=== PATIENT | male | born 1955 | race Caucasian/White ===

== ENCOUNTER → 2016-09-28 | Outpatient (CLI) | payer OTHER | LOC: FIMAGING 08:56 | PROVIDERS: ATTEND Family Medicine | DX: M51.36 Other intervertebral disc degeneration, lumbar region (principal) ==

== ENCOUNTER 2018-01-06 15:18 | Emergency (ER) | payer OTHER ==
--- NOTE | 2018-01-06 17:40 | EDPHY ---
HPI/HX/ROS/PE/MDM Narrative: CHIEF COMPLAINT: Abnormal EKG HISTORY OF PRESENT ILLNESS: This patient is a 62 year old male with history of diabetes and hypertension presenting at the request of his primary care provider following an abnormal EKG. Last Wednesday, he saw his community relations representative for a routine visit. The patient states this provider "heard a bundle block". He saw his PCP today and had and EKG which showed LBBB. He was unable to see a bankruptcy legal assistant soon and presents here for evaluation. He currently feels well. Denies chest pain or shortness of breath. Denies any recent exercise intolerance and bicycles regularly. Denies any calf pain or swelling. He endorses a recent increase in his Lisinopril dose from 10-20mg, no other recent medication changes. He notes his brother also has a LBBB. No fever, chills, chest pain, shortness of breath, palpitations, vomiting, diarrhea, urinary complaints, headache, lightheadedness. REVIEW OF SYSTEMS: A comprehensive 10 system review of systems is otherwise negative aside from elements mentioned in the history of present illness and medical decision making. PAST MEDICAL HISTORY: Diabetes mellitus (controlled with diet and exercise). Hyperproteinemia. Hypercalcemia. Hypertension (Lisinopril). Appendectomy. SOCIAL HISTORY: Nonsmoker. Occasional alcohol use. No illicit drug use. VITAL SIGNS: Reviewed by me GENERAL: Well-developed, well-nourished, resting comfortably in no respiratory distress. HEENT: Atraumatic. Eyes: No icterus, no injection. Mouth: moist mucous membranes. No erythema or lesions. Neck: supple with no adenopathy. LUNGS: Clear to auscultation bilaterally, no wheezes, rhonchi or rales. CARDIAC: Regular rate. S4 gallop. ABDOMEN: Soft, nontender, nondistended, bowel sounds normal. BACK: No CVA tenderness. EXTREMITIES: No trauma. No edema. Range of motion is normal throughout. NEURO: Alert and oriented, grossly nonfocal. SKIN: Warm and dry, no rash. PSYCHIATRIC: Normal mentation, no agitation. Portions of this note were transcribed by a pediatric medical assistant. I personally performed a history, physical exam, medical decision making, and confirmed accuracy of information the transcribed note. ED Course: 62 y/o male presents for evaluation after incidental discovery of LBBB on EKG. Patient has S4 gallop on exam. Plan for EKG, chest x-ray. Patient does not wish to repeat CBC/chemistries today as he has had these recently. Plan for additional labs including Troponin, BNP, CK. 12-LEAD EKG: Please see the full report in [facility]. My interpretation: Sinus rhythm. Left bundle branch block. CXR normal. Troponin negative. CK within normal limits. Additional labs from and today are otherwise largely unremarkable. 19:00 Reassessed. Discussed results. Plan to discharge home in good condition with referral to cardiology for further evaluation. Return precautions discussed. He is comfortable with this plan. MDM: Differential diagnoses for the patient's symptom complex was considered including but not limited to occult ischemia, coronary artery disease, arrhythmia, abnormal EKG, pre-existing left bundle branch block, congestive heart failure, valvular disorder. - Data Points Imaging Results: CXR: Impression: Normal chest x-ray. Dictated By: Francis Carlisle MD Imaging: I viewed and interpreted images myself General Time Seen by Provider: 01/06/18 17:30 Initial Vital Signs: Initial Vital Signs Temperature (C) 36.7 C 01/06/18 15:39 Heart Rate 91 01/06/18 15:39 Respiratory Rate 16 01/06/18 15:39 Blood Pressure 152/79 H 01/06/18 15:39 O2 Sat (%) 98 01/06/18 15:39 O2 Delivery Mode Room Air Allergies/Adverse Reactions: No Known Allergies Allergy (Unverified 01/06/18 15:38) Departure - Departure Disposition: Home, Routine, Self-Care Clinical Impression: Abnormal EKG, Possible arrhythmia Condition: Good Instructions: Transthoracic Echocardiogram (ED) Additional Instructions: Follow up with cardiology for further evaluation, within one week. Return to the Emergency Department for fever, chest pain, shortness of breath, increasing pain, fainting, or other worsening of condition. Referrals: Lupillo Mukherjee DO [Primary Care Provider] - As per Instructions Noah Brewer MD [Medical Doctor] - As per Instructions Report Scribed for: Alejandrina Corbett Report Scribed by: Rose Bhardwaj Date of Report: 01/06/18 Time of Report: 19:22
[2018-01-06 18:29] LABS: CREATINE KINASE 102 IU/L (0-224)
[2018-01-06 18:43] VITALS: BP 144/84
--- NOTE | 2018-01-06 23:06 | CPEKG ---
Test Reason : OPEN Blood Pressure : / mmHG Vent. Rate : 094 BPM Atrial Rate : 094 BPM P-R Int : 169 ms QRS Dur : 154 ms QT Int : 380 ms P-R-T Axes : 077 000 154 degrees QTc Int : 476 ms Sinus rhythm Left bundle branch block Confirmed by Alejandrina Corbett ([id number]) on 01/06/2018 11:06:09 PM Referred By: Confirmed By:Alejandrina Corbett
== END 2018-01-06 19:09 | disposition home or self-care (01) ==
DX: R94.31 Abnormal electrocardiogram [ECG] [EKG] (principal); E11.9 Type 2 diabetes mellitus without complications; E88.09 Other disorders of plasma-protein metabolism, not elsewhere classified; E83.52 Hypercalcemia; I10 Essential (primary) hypertension

== ENCOUNTER 2018-01-25 09:20 | Inpatient (IN) | payer OTHER ==
[2018-01-25] MEDS ORDERED: DIAZEPAM 5 MG TAB PO ONE (09:23)
[2018-01-25] MEDS ORDERED: ASPIRIN EC 325 MG TAB PO ONE (09:23)
[2018-01-25] MEDS ORDERED: FAMOTIDINE 20 MG TAB PO ONE (09:23)
[2018-01-25] MEDS ORDERED: diphenhydrAMINE 25 MG CAP PO ONE (09:23)
[2018-01-25] MEDS ORDERED: NS 1,000 ML IV ONE (09:23)
[2018-01-25] MEDS ORDERED: ASPIRIN 81 MG CHEWABLE TAB ONE (09:52)
[2018-01-25 10:00] LABS: PLATELET COUNT 166 10^3/uL (150-400)
[2018-01-25 10:08] LABS: INR 0.95 (0.83-1.16); PROTIME(PATIENT) 12.9 SEC (12.0-15.0)
[2018-01-25] MEDS ORDERED: fentaNYL 100 MCG/2 ML INJ ONE (10:13)
[2018-01-25] MEDS ORDERED: LIDOCAINE 1% 300 MG/30 ML SDV ONE (10:13)
[2018-01-25] MEDS ORDERED: IOPAMIDOL (ISOVUE-370) 150 ML BTL IV ONE (10:14)
[2018-01-25] MEDS ORDERED: MIDAZOLAM 2 MG/2 ML VIAL ONE (10:14)
--- NOTE | 2018-01-25 10:22 | PDHPUP ---
History & Physical Update H&P update statement: This history and physical update is based on an assessment of the patient which was completed after admission or registration (within 24 hours), but prior to the surgery/procedure. H&P update: H&P reviewed & patient examined, no change in patient's condition since H&P completed
--- NOTE | 2018-01-25 10:23 | PDPROPOC ---
Sedation Plan of Care Sedation Plan of Care: vital signs stable, mental status noted, patient educated of risks, benefits, alternatives, patient can tolerate sedation ASA Classification: ASA 2 Planned drugs: fentanyl, midazolam Mallampati Score: Class 1 Mallampati Reference Image: Patient passed 3-3-2 rule?: Yes
--- NOTE | 2018-01-25 11:31 | CPIP ---
DATE OF PROCEDURE: 01/25/2018 PROCEDURES: 1. Coronary angiography. 2. Left ventriculography. INDICATION: High-risk abnormal nuclear stress test with multiple zones of ischemia and reduced left ventricular systolic function. ACCESS: Patient was prepped and draped in sterile fashion. 1% lidocaine was used to anesthetize the right inguinal region. A 6-Mongolian introducer sheath was placed selectively in the right common femo ral artery via modified Seldinger technique. CORONARY ANGIOGRAPHY: A 6-Mongolian JL4 was advanced to left main coronary artery and images obtained. The left main coronary artery bifurcated into an LAD and circumflex coronary arteries. The left gavin n coronary artery appeared normal. The left anterior descending coronary artery gave rise to 2 diago nal branches. The left anterior descending coronary artery was 100% occluded just distal to the take off of the 2nd diagonal artery. The distal vessel is being filled by [id number] as well as right-t o-left collaterals. The 2nd diagonal artery was a large vessel. The 2nd diagonal artery had a large proximal 70% stenosis present. Circumflex coronary artery was codominant. Circumflex coronary arter y had a single discrete 80% stenosis in the mid-vessel, just at the takeoff of the first OM artery. The first OM artery was also diseased in the ostial segment at 80%. A 6-Mongolian JR4 was advanced to t he right coronary artery and images obtained. The right coronary artery was 100% occluded in the mid -vessel. LEFT VENTRICULOGRAPHY: A 6-Mongolian pigtail catheter was advanced in the left ventricle and images obt ained. Left ventricle is normal size with reduced systolic function. Estimated ejection fraction is 20%. COMPLICATIONS: None. CONCLUSIONS: 1. Severe three-vessel coronary artery disease. 2. Reduced left ventricular systolic function. 3. Plan is for surgical evaluation. /[id number]/MODL
[2018-01-25] MEDS ORDERED: NITROGLYCERIN 0.4 MG BTL SL PRN (12:11)
[2018-01-25] MEDS ORDERED: ONDANSETRON 4 MG/2 ML VIAL IVP PRN (12:11)
[2018-01-25] MEDS ORDERED: ATROPINE SULFATE 1 MG/10 ML SYR IVP PRN (12:11)
--- NOTE | 2018-01-25 12:48 | PDMN ---
Medical Necessity Medical necessity: MCG: S 390 CABG-4 days: ( pend) severe 3 vessel CAD
--- NOTE | 2018-01-25 12:52 | ECHO ---
[email or web address] [address] [address] Main: [phone] Fax: Transthoracic Echocardiogram Name: ANGE MACKAY MR#: [id number] Study Date: 01/25/2018 Study Time: 11:52 AM Date of : 1955 Age: 62 year(s) Height: 172.7 cm (68 in.) Weight: 72.58 kg (160 lb.) BSA: 1.86 m2 Gender: Male Examination: Echo Indication: Post Cath Image Quality: Contrast: Requested by: Lopez Neil BP: 131 mmHg/85 mmHg Heart Rate: Rhythm: Normal sinus rhythm Indication: Post Cath Procedure Staff Publication Editor: Maikel Nesbitt RDCS Reading Physician: Lopez Neil MD Requesting Provider: Conclusions: Mildly to moderately dilated left ventricle. Severely reduced systolic LV function. The ejection fraction is visually estimated to be 20 %. The mitral valve is normal in appearance and function. Trivial mitral valve regurgitation. The aortic valve is normal in appearance and function. No old studies for comparison. Measurements: Chambers Valvular Assessment AV/MV Valvular Assessment TV/PV Normal Normal Normal Name Value Range Name Value Range Name Value Range Ao Tamica (MM): 3.2 cm (2.2 cm-3.7 AV Vmax: 1.18 m/s (1 m/s-1.7 PV Vmax: 0.83 m/s (0.6 m/s-0.9 cm) m/s) m/s) IVSd (2D): 0.7 cm (0.6 cm-1.1 AV maxP mmHg ( - ) PV PGmax: 3 mmHg ( - ) cm) AV meanP mmHg ( - ) LVDd (2D): 6.3 cm (4.2 cm-5.9 LVOT Vmax: 0.74 m/s (0.7 m/s-1.1 cm) m/s) LVDs (2D): 5.7 cm (2.1 cm-4 VERA (Vmax): 2.2 cm2 ( - ) cm) VERA (VTI): 1.9 cm ( - ) LVPWd (2D): 1.0 cm (0.6 cm-1 MV E Vmax: 0.38 m/s ( - ) cm) MV A Vmax: 0.80 m/s ( - ) LVOTd 2.1 cm 2.1 cm mm MV E/A: 0.48 ( - ) LVEF (2D): 21 (>=54 %) Visual EF: 20 % Continued Measurements: Chambers Valvular Assessment AV/MV Name Value Name Value Patient: ANGE MACKAY Study Date: 01/25/2018 Page 1 of 2 11:52 AM LADs Lon.4 cm MV E' Septal: 0.04 m/s LA Area: 17.3 cm2 MV E/E' Septal: 10.40 LA Volume: 45 ml MV E/E' Lateral: 4.60 LA Volume Index: 24.2 ml/m2 Findings: Left Ventricle: Mildly to moderately dilated left ventricle. No LV hypertrophy. Severely reduced systolic LV function. The ejection fraction is visually estimated to be 20 %. Diastolic dysfunction is present. . Right Ventricle: Normal size right ventricle. Normal RV function. Left Atrium: The left atrium is normal in size. Right Atrium: The right atrium is normal in size. Mitral Valve: The mitral valve is normal in appearance and function. Trivial mitral valve regurgitation. Aortic Valve: The aortic valve is normal in appearance and function. There is no aortic valve regurgitation. Tricuspid Valve: The tricuspid valve appears normal. Pulmonic Valve: The pulmonic valve is normal in appearance and function. Aorta: The aorta is normal. Pericardium: No pericardial effusion. (No Signature Object) Patient: ANGE MACKAY Study Date: 01/25/2018 Page 2 of 2 11:52 AM D:_[id number]
[2018-01-25] MEDS ORDERED: ACETAMINOPHEN 325 MG TAB PO PRN (16:47)
[2018-01-25] MEDS: SENNOSIDES/DOCUSATE SODIUM TAB PO SCH (20:51)
[2018-01-25] MEDS: LISINOPRIL 20 MG TAB PO SCH (20:52)
[2018-01-25] MEDS: MUPIROCIN 2% 22 GM OINT NS SCH (20:53)
[2018-01-25] MEDS ORDERED: CHLORHEXIDINE GLUC HIBICLENS 118 ML BTL TP SCH (21:00)
[2018-01-26] MEDS: MUPIROCIN 2% 22 GM OINT NS SCH ×2 (08:23→20:51)
[2018-01-26] MEDS: SENNOSIDES/DOCUSATE SODIUM TAB PO SCH ×2 (08:23→20:52)
[2018-01-26] MEDS ORDERED: INSULIN REGULAR HUMAN 100 UNIT in NS 100 ML IV ONE (10:00)
[2018-01-26] MEDS ORDERED: PHENYLEPHRINE HCL 50 MG in NS 250 ML IV ONE (10:00)
[2018-01-26] MEDS ORDERED: VERAPAMIL 5 MG, NITROGLYCERIN 2.5 MG, HEPARIN 500 UNIT, SODIUM BICARBONATE 0.2 MEQ in L... MISC ONE (10:00)
[2018-01-26] MEDS ORDERED: niCARdipine/NACL 200 ML IV ONE (10:00)
[2018-01-26] MEDS ORDERED: CITRATE DEXTROSE SOLN 500 ML BAG MISC ONE (10:00)
[2018-01-26] MEDS ORDERED: MANNITOL 25% 12.5 GM/50 ML VIAL IVP ONE (10:00)
[2018-01-26] MEDS ORDERED: NOREPINEPHRINE BITARTRATE 16 MG in NS 250 ML IV ONE (10:00)
[2018-01-26] MEDS ORDERED: ceFAZolin 2 GM/DEXTROSE 100 ML IV ONE (10:00)
[2018-01-26] MEDS ORDERED: NS 1,000 ML IV ONE (10:00)
[2018-01-26] MEDS ORDERED: CARDIOPLEGIC SOLUTION 1,052.8 ML PF ONE (10:00)
[2018-01-26] MEDS ORDERED: AMINOCAPROIC ACID 5 GM/20 ML VIAL IV ONE (10:00)
--- NOTE | 2018-01-26 15:13 | ASMTCMCOM ---
CM Note CM Note Notes: 01/26/2018 Case Management Note Reviewed chart and discussed with RN. Pt admitted with CAD with planned CABG for tomorrow. Case Management d/c poc: to be determined. Case Management to follow. Date Signed: 01/26/2018 03:13 PM Electronically Signed By:Rufina Peñaloza RN
--- NOTE | 2018-01-26 16:38 | SOAPPROG ---
[facility] Progress Note Assessment/Plan: 1. CAD - Pt presented with a new LBBB and reduced left ventricular systolic function. Cardiac catheterization demonstrated severe 3VD. Pt is anticipating surgery on 01/27/18. 2. CM - Pt has an ICM. His EF is 20 to 25%. He is euvolemic at this time and denies symptoms of orthopnea and PND. --> Continue lisinopril --> Will start coreg 3.125 mg bid 3. Hyperlipidemia - Pts LDL cholesterol is 90 on atorvastatin 20 mg daily. --> Increase atorvastatin to 40 mg daily. 01/26/18 16:39 Subjective: No chest pain No orthopnea or PND Ambulating 18 laps around the pod with out difficulty. Objective: Vital Signs Temp Pulse Resp BP Pulse Ox 36.9 C 80 10 L 139/79 H 97 01/26/18 04:21 01/26/18 04:21 01/26/18 04:21 01/26/18 04:21 01/26/18 04:21 Laboratory Results 01/25/18 09:30 01/26/18 03:24 01/25/18 01/26/18 01/27/18 05:59 05:59 05:59 Intake Total 390 Output Total 1050 Balance -660 PT 12.9 SEC (12.0-15.0) 01/25/18 09:30 INR 0.95 (0.83-1.16) 01/25/18 09:30 Physical Exam - Physical Exam General Appearance: alert, no apparent distress Respiratory: lungs clear Cardiac/Chest: regular rate, rhythm Extremities: other (No hematoma or echymosis.), No pedal edema Neuro/Psych: alert, oriented x 3 ICD10 Worksheet Patient Problems: Problems Problem Status Onset Cardiomyopathy Acute - ICD10 Problem Qualifiers (1) Cardiomyopathy
[2018-01-26] MEDS: CARVEDILOL 3.125 MG TAB PO SCH (17:15)
[2018-01-26] MEDS: ATORVASTATIN CALCIUM 40 MG TAB PO SCH (17:15)
--- NOTE | 2018-01-26 17:21 | PDGENHP ---
History and Physical - Chief Complaint preop CABG - History of Present Illness Consultation done by Dr Cochran 01/25/18 but not dictated. 62 yo male with multiple cardiac risk factors, a newly discovered LBBB, and an abnormal nuclear stress test demonstrating a large ischemic territory as well as severe global hypokinesis with an EF of 28% admitted for further cardiac w/ u. Demonstrated to have severe multivessel CAD and referred for surgical revascularization. Dilated cardiomyopathy confirmed by echo. No significant valvular dysfx, arrhythmias or prohibitive neurologic risk. He is asymptomatic. Runs most of his errands by bicycle and habitually rides [employer] 5-15 miles 3-4 x weekly. No drop off in exercise tolerance recalled. Weight has been stable. Denies dyspnea, orthopnea, edema, palpitations, or presyncope. History Information - Allergies/Home Medication List Allergies/Adverse Reactions: No Known Allergies Allergy (Verified 01/24/18 10:16) Home Medications: Acetaminophen [Tylenol 325mg (*)] 325 mg PO DAILY PRN 01/24/18 [Last Taken 01/23] Aflibercept [Eylea] 2 mg IO Q30D 01/24/18 [Last Taken 01/24/18] Aspirin [Aspirin 81mg (*)] 81 mg PO DAILY 01/24/18 [Last Taken 01/25/18] Atorvastatin Calcium [Lipitor 20 mg (*)] 20 mg PO DAILY 01/24/18 [Last Taken 09/06] Cholecalciferol Vit D3 [Vitamin D3 2000 units tab (OTC)] 2,000 units PO DAILY [Last Taken 01/24/18] Lisinopril [Zestril 20 mg (*)] 20 mg PO HS 01/24/18 [Last Taken 01/24/18 21:00] [place]-3 Fatty Acids [Fish Oil 1000 mg (*)] 2,000 mg PO DAILY 01/24/18 [Last Taken 01/24/18] I have personally reviewed and updated: family history, medical history, social history, surgical history - Past Medical History degenerative disc disease (lumbar with LLE radiculopathy), diabetes type 2 ( with proteinuria, retinopathy, nephropathy and peripheral neuropathy), hypertension, hyperlipidemia Additional medical history: primary hyperparathyroidism. Raynaud's. normocytic anemia - Surgical History Reports: appendectomy Additional surgical history: periodic eye injections (for retinopathy) at [facility] - Social History Smoking Status: Never smoked Additional social history: Single, no children, lives alone. 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), thinking about [facility] Review of Systems Review of Systems: ROS: 10pt was reviewed & negative except for what was stated in HPI & below EENMT: Reports: other (glasses) Genitourinary: Reports: other (nocturia) Physical Exam Physical Exam: Temp Pulse Resp BP Pulse Ox 36.9 C 80 10 L 139/79 H 97 01/26/18 04:21 01/26/18 04:21 01/26/18 04:21 01/26/18 04:21 01/26/18 04:21 Constitutional: no apparent distress, appears nourished Eyes: other (PER) Ears, Nose, Mouth, Throat: moist mucous membranes, hearing normal Cardiovascular: regular rate and rhythym, other (Slender legs with superficial veins, no visible varicosities) Peripheral Pulses: 2+: femoral (L) (R cath site dressing CDI, perimeter soft), dorsalis-pedis (R), dorsalis-pedis (L) Respiratory: no respiratory distress, clear to auscultation Gastrointestinal: normoactive bowel sounds, soft, non-tender abdomen Skin: warm, no rashes or abrasions Musculoskeletal: other (symmetric tone) Psychiatric: interacting appropriately, not anxious Lab Data & Imaging Review 01/25/18 09:30 01/26/18 03:24 WBC 7.33 10^3/uL (3.80-9.50) 01/25/18 09:30 RBC 4.32 10^6/uL (4.40-6.38) L 01/25/18 09:30 Hgb 13.5 g/dL (13.7-17.5) L 01/25/18 09:30 Hct 39.4 % (40.0-51.0) L 01/25/18 09:30 MCV 91.2 fL (81.5-99.8) 01/25/18 09:30 MCH 31.3 pg (27.9-34.1) 01/25/18 09:30 MCHC 34.3 g/dL (32.4-36.7) 01/25/18 09:30 RDW 13.7 % (11.5-15.2) 01/25/18 09:30 Plt Count 166 10^3/uL (150-400) 01/25/18 09:30 MPV 9.6 fL (8.7-11.7) 01/25/18 09:30 Neut % (Auto) 63.4 % (39.3-74.2) 01/25/18 09:30 Lymph % (Auto) 22.1 % (15.0-45.0) 01/25/18 09:30 [place]ison % (Auto) 9.1 % (4.5-13.0) 01/25/18 09:30 Eos % (Auto) 4.6 % (0.6-7.6) 01/25/18 09:30 Baso % (Auto) 0.7 % (0.3-1.7) 01/25/18 09:30 Nucleat RBC Rel Count 0.0 % (0.0-0.2) 01/25/18 09:30 Absolute Neuts (auto) 4.64 10^3/uL (1.70-6.50) 01/25/18 09:30 Absolute Lymphs (auto) 1.62 10^3/uL (1.00-3.00) 01/25/18 09:30 Absolute Monos (auto) 0.67 10^3/uL (0.30-0.80) 01/25/18 09:30 Absolute Eos (auto) 0.34 10^3/uL (0.03-0.40) 01/25/18 09:30 Absolute Basos (auto) 0.05 10^3/uL (0.02-0.10) 01/25/18 09:30 Absolute Nucleated RBC 0.00 10^3/uL (0-0.01) 01/25/18 09:30 Immature Gran % 0.1 % (0.0-1.1) 01/25/18 09:30 Immature Gran # 0.01 10^3/uL (0.00-0.10) 01/25/18 09:30 PT 12.9 SEC (12.0-15.0) 01/25/18 09:30 INR 0.95 (0.83-1.16) 01/25/18 09:30 Sodium 141 mEq/L (135-145) 01/26/18 03:24 Potassium 4.5 mEq/L (3.3-5.0) 01/26/18 03:24 Chloride 106 mEq/L (97-110) 01/26/18 03:24 Carbon Dioxide 26 mEq/l (22-31) 01/26/18 03:24 Anion Gap 9 mEq/L (6-14) 01/26/18 03:24 BUN 25 mg/dL (7-23) H 01/26/18 03:24 Creatinine 1.0 mg/dL (0.7-1.3) 01/26/18 03:24 Estimated GFR > 60 01/26/18 03:24 Glucose 90 mg/dL (70-100) 01/26/18 03:24 Hemoglobin A1c 6.1 % (4.0-6.0) H 01/26/18 03:24 Estim Average Glucose 128 mg/dL (68-126) H 01/26/18 03:24 Calcium 10.8 mg/dL (8.5-10.4) H 01/26/18 03:24 Phosphorus 4.7 mg/dL (2.5-4.5) H 01/26/18 03:24 Magnesium 2.0 mg/dL (1.6-2.3) 01/25/18 09:30 Triglycerides 62 mg/dL (40-150) 01/25/18 09:30 Cholesterol 158 mg/dL (140-220) 01/25/18 09:30 Cholesterol Risk Factr 0.5 (0.2-1.0) 01/25/18 09:30 LDL Cholesterol, Calc 90 mg/dL (80-100) 01/25/18 09:30 LDL Risk Factor 0.8 (0.2-1.0) 01/25/18 09:30 VLDL Cholesterol 12 mg/dL (8-25) 01/25/18 09:30 Non-HDL Cholesterol 102 mg/dL (90-129) 01/25/18 09:30 HDL Cholesterol 56 mg/dL (40-65) 01/25/18 09:30 LDL/HDL Ratio 1.60 RATIO (1.00-3.64) 01/25/18 09:30 Cholesterol/HDL Ratio 2.82 RATIO (1.00-4.97) 01/25/18 09:30 Patient ABO/Rh O POSITIVE 01/25/18 15:20 Antibody Screen NEGATIVE 01/25/18 15:20 Imaging Review: LHC: Codominant circulation, SILVERWARE ETCHER LAD after D2, 70% prox D2 stenosis, 80% mid LCX stenosis, 80% ostial OM1 stenosis, 100% mid RCA, LVEF 20% TTE: Mild to mod LV dilatation, LVEF 20%, Nl RV size and systolic fx, nl sized atria, trivial MR, no TR, no /AI Carotid US: mild plaquing bilat bulbs Visualized and Interpreted Chest x-ray results: Yes Chest X-Ray results: normal Visualized and Interpreted EKG results: Yes EKG Interpretation: Positive for: left bundle branch block, normal sinsus rhythm Assessment & Plan Assessment: Multivessel CAD Ischemic cardiomyopathy DM2, controlled HTN Dyslipidemia Plan: CABG by Dr Collier
[2018-01-26] MEDS: LISINOPRIL 20 MG TAB PO SCH (20:51)
[2018-01-26] MEDS ORDERED: CHLORHEXIDINE GLUC HIBICLENS 118 ML BTL TP SCH (21:00)
--- NOTE | 2018-01-26 22:42 | CPEKG ---
Test Reason : OPEN Blood Pressure : / mmHG Vent. Rate : 089 BPM Atrial Rate : 087 BPM P-R Int : 163 ms QRS Dur : 151 ms QT Int : 413 ms P-R-T Axes : 066 -08 154 degrees QTc Int : 503 ms Sinus rhythm Left bundle branch block Borderline prolonged QTc Confirmed by Obed Zuniga ([id number]) on 01/26/2018 10:42:13 PM Referred By: Confirmed By:Obed Zuniga
[2018-01-27] MEDS ORDERED: LR 1,000 ML IV ONE (05:35)
[2018-01-27] MEDS ORDERED: DOBUTamine/DEXTROSE 250 ML IV ONE (06:00)
[2018-01-27] MEDS: MUPIROCIN 2% 22 GM OINT NS SCH ×2 (06:21→21:47)
[2018-01-27] MEDS ORDERED: PROTAMINE SULFATE 50 MG/5 ML VIAL IVP ONE (06:46)
[2018-01-27] MEDS ORDERED: DOPamine/DEXTROSE 400 MG/250 ML BAG IV ONE (06:47)
[2018-01-27] MEDS ORDERED: MILRINONE/DEXTROSE/100 ML BAG IV ONE (06:47)
[2018-01-27] MEDS ORDERED: CALCIUM CHLORIDE 1 GM/10 ML INJ ONE ×2 (06:47→06:49)
[2018-01-27] MEDS ORDERED: NA BICARBONATE 50 MEQ/50 ML VIAL ONE ×2 (06:47→16:44)
[2018-01-27] MEDS ORDERED: HEPARIN 10,000 UNIT/10 ML MDV (1,000 UNIT/ML) ONE ×2 (06:47→06:49)
[2018-01-27] MEDS ORDERED: ADENOSINE 6 MG/2 ML VIAL ONE (06:48)
[2018-01-27] MEDS ORDERED: NITROGLYCERIN/D5W 50 MG/250 ML BOTTLE IV ONE (06:48)
[2018-01-27] MEDS ORDERED: ALBUMIN 5% 250 ML BOTTLE IV ONE ×3 (06:48→14:02)
[2018-01-27] MEDS ORDERED: AMIODARONE HCL 150 MG/3 ML VIAL ONE ×2 (06:48→06:49)
[2018-01-27] MEDS ORDERED: ceFAZolin 1 GM VIAL ONE (06:48)
[2018-01-27] MEDS ORDERED: niCARdipine/NACL/200 ML BAG IV ONE (06:48)
[2018-01-27] MEDS ORDERED: methylPREDNISolone SOD SUCC 1 GM/8 ML VIAL ONE (06:49)
[2018-01-27] MEDS ORDERED: MAGNESIUM SULFATE 1 GM/2 ML VIAL ONE (06:49)
[2018-01-27] MEDS ORDERED: CITRATE DEXTROSE SOLN 500 ML BAG ONE (06:49)
[2018-01-27] MEDS ORDERED: LIDOCAINE 2% 100 MG/5 ML SYR ONE (06:49)
[2018-01-27] MEDS ORDERED: VERAPAMIL 5 MG/2 ML VIAL ONE (06:53)
[2018-01-27] MEDS ORDERED: PAPAVERINE HCL 60 MG/2 ML SDV ONE (06:53)
[2018-01-27] MEDS ORDERED: MIDAZOLAM 2 MG/2 ML VIAL IVP ONE ×2 (06:57→18:45)
--- NOTE | 2018-01-27 06:57 | PDANEPAE ---
ANE History of Present Illness 62 yo cabg ANE Past Medical History - Cardiovascular History Hx Hypertension: No Hx Arrhythmias: No Hx Chest Pain: No Hx Coronary Artery / Peripheral Vascular Disease: Yes Hx CHF / Valvular Disease: Yes Hx Palpitations: No - Pulmonary History Hx COPD: No Hx Asthma/Reactive Airway Disease: No Hx Recent Upper Respiratory Infection: No Hx Oxygen in Use at Home: No Hx Sleep Apnea: No Sleep Apnea Screening Result - Last Documented: Positive - Endocrine History Hx Diabetes: Yes ANE Review of Systems Review of Systems: - Exercise capacity METS (RN): 4 METS ANE Patient History - Allergies Allergies/Adverse Reactions: No Known Allergies Allergy (Verified 01/24/18 10:16) - Home Medications Home medications: home medication list seen and reviewed Home Medications: Acetaminophen [Tylenol 325mg (*)] 325 mg PO DAILY PRN 01/24/18 [Last Taken 01/23] Aflibercept [Eylea] 2 mg IO Q30D 01/24/18 [Last Taken 01/24/18] Aspirin [Aspirin 81mg (*)] 81 mg PO DAILY 01/24/18 [Last Taken 01/25/18] Atorvastatin Calcium [Lipitor 20 mg (*)] 20 mg PO DAILY 01/24/18 [Last Taken 09/06] Cholecalciferol Vit D3 [Vitamin D3 2000 units tab (OTC)] 2,000 units PO DAILY [Last Taken 01/24/18] Lisinopril [Zestril 20 mg (*)] 20 mg PO HS 01/24/18 [Last Taken 01/24/18 21:00] [place]-3 Fatty Acids [Fish Oil 1000 mg (*)] 2,000 mg PO DAILY 01/24/18 [Last Taken 01/24/18] - NPO status NPO Status: no food or drink >8 hours NPO Since - Liquids (Date): 01/26/18 NPO Since - Liquids (Time): 23:35 NPO Since - Solids (Date): 01/26/18 NPO Since - Solids (Time): 21:40 - Smoking Hx Smoking Status: Never smoked ANE Labs/Vital Signs - Labs Result Diagrams: 01/25/18 09:30 01/26/18 03:24 - Vital Signs Blood Pressure: 120/71 Heart Rate: 88 Respiratory Rate: 18 O2 Sat (%): 96 Height: 5 ft 8 in Weight: 70.6 kg ANE Physical Exam - Airway Neck exam: FROM Mallampati Score: Class 2 Mouth exam: normal dental/mouth exam - Pulmonary Pulmonary: no respiratory distress - Cardiovascular Cardiovascular: regular rate and rhythym - ASA Status ASA Status: IV ANE Anesthesia Plan Anesthesia Plan: general endotracheal anesthesia Lines/Monitors: arterial line, central line, [place]
[2018-01-27] MEDS ORDERED: REMIFENTANIL HCL 1 MG VIAL ONE (07:05)
[2018-01-27] MEDS ORDERED: PROPOFOL/EMULSION 500 MG/50 ML BOTTLE IV ONE (07:06)
[2018-01-27] MEDS ORDERED: ROCURONIUM 100 MG/10 ML VIAL ONE (07:06)
[2018-01-27] MEDS ORDERED: fentaNYL 100 MCG/2 ML INJ ONE ×2 (07:06→11:40)
[2018-01-27] MEDS ORDERED: DEXAMETHASONE 4 MG/ML VIAL ONE (07:08)
[2018-01-27] MEDS ORDERED: NOREPINEPHRINE BITARTRATE 16 MG in NS 250 ML IV ONE (08:00)
[2018-01-27] MEDS ORDERED: MANNITOL 25% 12.5 GM/50 ML VIAL IVP ONE (08:00)
[2018-01-27] MEDS ORDERED: CITRATE DEXTROSE SOLN 500 ML BAG MISC ONE (08:00)
[2018-01-27] MEDS ORDERED: niCARdipine/NACL 200 ML IV ONE (08:00)
[2018-01-27] MEDS ORDERED: PHENYLEPHRINE HCL 50 MG in NS 250 ML IV ONE (08:00)
[2018-01-27] MEDS ORDERED: AMINOCAPROIC ACID 5 GM/20 ML VIAL IV ONE (08:00)
[2018-01-27] MEDS ORDERED: CARDIOPLEGIC SOLUTION 1,052.8 ML PF ONE (08:00)
[2018-01-27] MEDS ORDERED: INSULIN REGULAR HUMAN 100 UNIT in NS 100 ML IV ONE (08:00)
[2018-01-27] MEDS ORDERED: ceFAZolin 2 GM/DEXTROSE 100 ML IV ONE (08:00)
[2018-01-27] MEDS ORDERED: VERAPAMIL 5 MG, NITROGLYCERIN 2.5 MG, HEPARIN 500 UNIT, SODIUM BICARBONATE 0.2 MEQ in L... MISC ONE (08:00)
[2018-01-27] MEDS ORDERED: PROPOFOL 200 MG/20 ML VIAL ONE (10:06)
[2018-01-27] MEDS ORDERED: ePHEDrine SULFATE 25 MG/5 ML SYR ONE (11:21)
[2018-01-27] MEDS ORDERED: PHENYLEPHRINE HCL 100 MCG/ML SYR ONE (11:21)
[2018-01-27] MEDS: ATORVASTATIN CALCIUM 40 MG TAB PO SCH (11:39)
[2018-01-27] MEDS: CARVEDILOL 3.125 MG TAB PO SCH (11:39)
[2018-01-27] MEDS: SENNOSIDES/DOCUSATE SODIUM TAB PO SCH ×2 (11:40→21:50)
[2018-01-27] MEDS ORDERED: BISACODYL 10 MG SUPP PR PRN (11:52)
[2018-01-27] MEDS ORDERED: HYDROCODONE/APAP 5/325 TAB PO PRN (11:52)
[2018-01-27] MEDS ORDERED: MEPERIDINE 25 MG/0.5 ML AMP IVP PRN (11:52)
[2018-01-27] MEDS ORDERED: LACTULOSE 20 GM/30 ML UDCUP PO PRN (11:52)
[2018-01-27] MEDS ORDERED: PANTOPRAZOLE SODIUM 40 MG VIAL IVP ONE (11:52)
[2018-01-27] MEDS ORDERED: METOCLOPRAMIDE 10 MG/2 ML VIAL IVP PRN (11:52)
[2018-01-27] MEDS ORDERED: ACETAMINOPHEN 325 MG TAB PO PRN (11:52)
[2018-01-27] MEDS ORDERED: ONDANSETRON 4 MG/2 ML VIAL IVP PRN (11:52)
[2018-01-27] MEDS ORDERED: POLYETHYLENE GLYCOL 3350 17 GM PKT PO PRN (11:52)
[2018-01-27] MEDS ORDERED: MAGNESIUM HYDROXIDE 30 ML UDCUP PO PRN (11:52)
[2018-01-27] MEDS ORDERED: ONDANSETRON DISINTEGRATING 4 MG TAB PO PRN (11:52)
[2018-01-27] MEDS ORDERED: fentaNYL 100 MCG/2 ML INJ IVP PRN (11:52)
[2018-01-27] MEDS ORDERED: D50W 25 GM/50 ML SYR IVP PRN (11:52)
[2018-01-27] MEDS ORDERED: CEPACOL LOZENGE PO PRN (11:52)
[2018-01-27] MEDS ORDERED: SODIUM CL NASAL 45 ML BTL EACHNARE PRN (11:52)
[2018-01-27] MEDS ORDERED: INSULIN REGULAR HUMAN 100 UNIT in NS 100 ML IV SCH (12:00)
[2018-01-27] MEDS ORDERED: niCARdipine/NACL 200 ML IV SCH (12:00)
[2018-01-27] MEDS ORDERED: NS 1,000 ML IV SCH ×2 (12:00→19:00)
--- NOTE | 2018-01-27 12:36 | GOP ---
DATE OF OPERATION: 01/27/2018 SURGEON: Joaquín Collier MD BEEF CATTLE FARMER: Charlie Álvarez PA-C. PREOPERATIVE DIAGNOSIS: Coronary artery disease with previous anterior wall myocardial infarction. POSTOPERATIVE DIAGNOSIS: Coronary artery disease with previous anterior wall myocardial infarction. PROCEDURE PERFORMED: Quadruple coronary artery bypass grafting. Endoscopic vein harvest from the le ft leg. FINDINGS: The pericardial space was free. The aorta was soft. The mammary was a good quality 1.5 m m vessel. The vein was good quality 3 mm vessel. The distal vessels were all calcified. The LAD wa s diminished. We dissect it out in several spaces. It was diffusely diseased and essentially atreti c. We were able to open it ultimately, and it was grafted with the mammary artery but limited flow w ould be anticipated due to the miniscule remnant of a lumen. INDICATIONS: The patient is a 62-year-old gentleman with an active lifestyle. He was feeling unwell and ultimately underwent stress test, which he failed and cardiac catheterization. Coronary angiogr aphy reveals chronically occluded, non-dominant right coronary and occluded LAD with filling of a sma ll distal vessel by collaterals, and a large circumflex system with proximal disease. He was recomme nded to undergo surgical revascularization. DESCRIPTION OF PROCEDURE: Patient taken to the operating room and placed on the operating table in s upine position after the induction of general anesthesia and single-lumen arterial tube invasion neela ent was prepped and draped sterilely. A standard median sternotomy was performed, and the left inter nal mammary artery was taken down with electrocautery and hemoclips. While the saphenous vein was vaughan rvested from the left leg using a minimally invasive endoscopic technique, the patient was fully hepa rinized and mammary was divided and found to have good flow. The patient was cannulated with a Sarns 8.0 Soft-Flow aortic cannula as well as a dual-staged venous right atrial cannula. Cardiopulmonary bypass was instituted. The distal vessels were marked for grafting. A cross-clamp was applied and t he heart was arrested with 1 L of [place] solution. The distal left circumflex M2 vessel was dissec mariam, opened, and anastomosed end-to-side with a vein graft using running 7-0 Prolene. Similarly M1 w as also opened. This is a smaller vessel. It was anastomosed end-to-side through a separate vein gr aft using 7-0 Prolene. Lastly, we did look at the diagonal. This was also somewhat calcified. We a nastomosed the vein graft end-to-side using running 7-0 Prolene. While dissecting the LAD, it was ve ry clear this was an atretic vessel. Borderline graft, while we did open it there was a lumen that w as approximately a millimeter in size. We anastomosed the mammary end-to-side to the LAD. Distally the LAD appeared subtotally occluded. However, the mammary was allowed to flow freely, and this did re-animate the anterior wall. The cross-clamp was then removed and a partial occlusion clamp was keanu brandi at 3 vein grafts, which were each individually anastomosed end-to-side to the ascending aorta. T hey were de-aired and allowed to flow freely. mediastinal chest tubes were placed as well as 2 right ventricular pacing wires. The patient was from bypass without difficulty using dobutamine at 6 mcg. Once off bypass the post puncture esophageal echo shows some recruitment of th e anterior wall. Protamine was administered and the patient was decannulated. All the cannulation s ites were doubly secured with a Prolene suture, and after hemostasis had been achieved the heart was then covered with pericardium and fat, and the chest was closed with #6 stainless steel wires. Subcu taneous tissue and skin were closed with running Vicryl suture. The patient tolerated the procedure well. SUMMARY OF GRAFTS: Left internal mammary artery to the LAD, saphenous vein graft from aorta to D1, s aphenous vein graft from aorta to M1, saphenous vein graft from aorta to M2. /[id number]/MODL
[2018-01-27] MEDS: ALBUMIN 5% 250 ML IV PRN ×2 (13:00→13:41)
[2018-01-27] MEDS ORDERED: ALBUMIN 5% 500 ML BOTTLE IV ONE (14:33)
[2018-01-27] MEDS ORDERED: ALBUMIN 5% 500 ML IV ONE (14:34)
[2018-01-27] MEDS ORDERED: EPINEPHrine 1 MG/ML INJ ONE (14:37)
[2018-01-27] MEDS ORDERED: NOREPINEPHRINE BITARTRATE 16 MG in NS 250 ML IV SCH (15:00)
[2018-01-27] MEDS ORDERED: NOREPINEPHRINE BITARTRATE 4 MG in NS 500 ML IV SCH (15:00)
[2018-01-27] MEDS ORDERED: EPINEPHrine 8 MG in NS 250 ML IV SCH (15:00)
[2018-01-27] MEDS ORDERED: SODIUM BICARBONATE 50 MEQ/50 ML SYR IV ONE ×2 (15:15→17:00)
[2018-01-27] MEDS: ceFAZolin 2 GM/DEXTROSE 100 ML IV SCH (16:23)
--- NOTE | 2018-01-27 16:29 | GCON ---
CRITICAL CARE CONSULTATION. DATE OF CONSULTATION: 01/27/2018 HISTORY OF PRESENT ILLNESS: This patient is a 62-year-old male who was admitted for coronary artery bypass grafting. He had been feeling relatively unwell with unclear reasons and underwent an outpati ent cardiac workup which included a nuclear stress test and echocardiogram. The stress test was servando maria alejandra abnormal and his echo showed an ejection fraction of only 20%. He also had a new left bundle br anch block. Interestingly enough, he rode his bicycle to his appointments for ongoing followup but w as admitted for cardiac cath which showed 3 vessel disease and underwent coronary artery bypass graft ing today. There were no intraoperative complications. He was brought back to the intensive care un it and extubated per protocol without difficulty. After about 60 minutes however, he developed signi ficant hypotension down to the 40s and was quite symptomatic and ashen during this. He was placed in a Trendelenburg position and given albumin as well as a unit of blood and started on both norepineph rine and epinephrine drips. Of note he came from the OR on dobutamine, but this was not titrated dur ing this period. There was no significant chest tube output during this period. His oxygen saturati on remained relatively stable. His breath sounds were equal bilaterally and an echocardiogram is pen ding at this time. He responded well to the volume as well as the pressors and maintained his mental status and his airway throughout the episode. REVIEW OF SYSTEMS: Otherwise negative. PAST MEDICAL HISTORY: Includes coronary artery disease, degenerative joint disease, cataracts, hepat itis B, anemia, hyperlipidemia, peripheral neuropathy, primary hyperparathyroidism, Raynaud phenomeno n, varicella zoster, and diabetes. PAST SURGICAL HISTORY: Other than today's CABG includes an appendectomy in the past. SOCIAL HISTORY: He is a nonsmoker and no significant alcohol or IV drug use. FAMILY HISTORY: Noncontributory at this time. CURRENT MEDICATIONS: Include Tylenol, [place], aspirin, Lipitor, carvedilol, Ancef, Pepcid, fentanyl, insulin, lactulose, lisinopril, milk of magnesia, Demerol p.r.n., Reglan p.r.n., morphine p.r.n., isra ardipine p.r.n., Zofran, Protonix, normal saline, throat lozenges. EXAM: VITAL SIGNS: On my arrival to the room in which I was called emergently, the patient was in Tr endelenburg position, appeared to be quite pale. His blood pressure by his arterial line was about 6 0-70 systolic as those maneuvers were being implemented. GENERAL: He was awake and able to assist to answer questions and was obviously uncomfortable. HEENT: Pupils equally round and reactive to ligh t. Nonicteric and noninjected. Mucous membranes were dry without erythema or exudate. NECK: Supple without adenopathy. No obvious jugular vein distention. LUNGS: Breath sounds were somewhat coarse b ilaterally. His chest wall incision was clean and dry without evidence of nonunion or obvious bleedi ng. Chest tube sites also look normal. HEART: Had a regular rate and rhythm. ABDOMEN: Soft, nont jagdish, nondistended without hepatosplenomegaly. EXTREMITIES: Show no clubbing, cyanosis, or edema. S KIN: Otherwise warm and dry. OBJECTIVE DATA: Includes his hematocrit of 25. His preoperative hematocrit was 39. An arterial blo od gas showed a pH 7.30, pCO2 37, pO2 62, bicarb of 19, base excess 7. He was given bicarbonate for that gas. A basic metabolic panel was essentially normal. His lactate was 1.9. Chest x-ray prior t o extubation was unremarkable. ASSESSMENT PLAN: 1. Severe hypotension of uncertain etiology, may be responding to fluids. At this time I do not thi nk he has adrenal insufficiency or an acute coronary syndrome, having just had a coronary artery bypa ss graft. Cardiac tamponade is in fact, a possibility though he was responsive and is getting an ech ocardiogram at this time. His low ejection fraction may not tolerate the anemia and I agree with the blood that he has been getting. His current drips include dobutamine, which I would leave alone at t his time,epinephrine and norepinephrine. I added vasopressin at this time to augment the effect of t hose medications and would titrate off his epinephrine. Of note during the resuscitation period chanelle g some frequent PVCs, about a 10-beat run of nonsustained VT, so I am hoping to minimize the arrhythm ogenicity of those medications. I do not think he is having active bleeding at this time, but colt bayronrajesh will have to follow up after his blood transfusion to see if his hematocrit rises appropriately. He is looking much better at this time. Dr. Collier is aware of this situation and we will continue to follow. A total of about 45 minutes of critical care time was required in the evaluation and management of th is patient. /[id number]/MODL
[2018-01-27] MEDS: POTASSIUM Cl (KCl) 50 ML IV PRN (16:34)
--- NOTE | 2018-01-27 16:34 | GPN ---
DATE OF PROCEDURE: 01/27/2018 PROCEDURE: Emergent intubation. Conscious sedation was achieved using a total of 40 mg IV etomidate, 1 mg of IV Versed. The patient tolerated these well without complications. Consent was waived due to the emergent nature of the procedure. INDICATION: Severe hypoxemia following recent coronary artery bypass graft. DESCRIPTION: After adequate sedation was achieved, a bag-mask ventilation was used to improve his ox ygen saturation. It was in the 60s. This could not get any higher than the 70s. I chose to intubat e him despite failing to achieve pre oxygenation. In any case, a 7.5 endotracheal tube was passed ea sily on the first attempt through normal-appearing vocal cords that showed no evidence of edema or bl eeding. There were no significant secretions. The vocal cords moved appropriately. After placement of the tube, there was appropriate air condensation in the tube as well as color change by capnograp hy and oxygen saturations rapidly improved to 100%. The patient tolerated the procedure well without difficulty. The blood pressure remained normal and in fact increased and a postprocedure chest x-ray is pending at this time. /[id number]/MODL
[2018-01-27] MEDS ORDERED: PROPOFOL/EMULSION 1,000 MG/100 ML BOTTLE IV ONE (16:44)
[2018-01-27] MEDS ORDERED: fentanYL/NACL/100 ML BAG IV ONE (16:45)
[2018-01-27] MEDS ORDERED: LIDOCAINE 1% 300 MG/30 ML SDV ONE (17:01)
[2018-01-27] MEDS ORDERED: EPINEPHrine 1 MG/10 ML SYR IVP ONE (17:15)
--- NOTE | 2018-01-27 17:19 | ECHO ---
[email or web address] [address] Main: [phone] Fax: Transthoracic Echocardiogram Name: ANGE MACKAY MR#: [id number] Study Date: 01/27/2018 Study Time: 03:06 PM Date of : 1955 Age: 62 year(s) Height: 172.7 cm (68 in.) Weight: 70.31 kg (155 lb.) BSA: 1.83 m2 Gender: Male Examination: Echo Indication: post oh Image Quality: Adequate Contrast: Requested by: Charlie Álvarez BP: 84 mmHg/53 mmHg Heart Rate: Rhythm: Indication: post oh Procedure Staff Bale Coverer: Lizbet Wesley RDCS Reading Physician: Lopez Huffamn MD Requesting Provider: Conclusions: Severely reduced systolic LV function. The ejection fraction is visually estimated to be 10 %. The left atrium is moderately dilated. The mitral valve is normal in structure. There is restricted motion of the posterior leaflet. There is moderate posteriorly directed mitral regurgitation.. The aortic valve is tri-leaflet. Trivial aortic valve regurgitation. No aortic valve stenosis is present. Right ventricular systolic pressure measures 52mmHg. When compared to the 01/25/18 study. The LVEF has decreased. Moderate mitral regurgitation is now present. Measurements: Chambers Valvular Assessment AV/MV Valvular Assessment TV/PV Normal Normal Normal Name Value Range Name Value Range Name Value Range Ao Tamica (2D): 2.7 cm (1.4 cm-2.6 AV Vmax: 1.06 m/s (1 m/s-1.7 TR Vmax: 3.41 mm/s ( - ) cm) m/s) TR PGmax: 47 mmHg ( - ) IVSd (2D): 1.2 cm (0.6 cm-1.1 AV maxP mmHg ( - ) syst. PAP: 52 mmHg ( - ) cm) AV meanP mmHg ( - ) LVDd (2D): 5.8 cm (4.2 cm-5.9 VERA (VTI): 2.1 cm ( - ) cm) MV E Vmax: 0.45 m/s ( - ) LVDs (2D): 5.3 cm (2.1 cm-4 MV A Vmax: 0.89 m/s ( - ) cm) MV E/A: 0.51 ( - ) LVPWd (2D): 1.1 cm (0.6 cm-1 cm) MV PHT: 0.042 s ( - ) LVOTd 2.1 cm 2.1 cm mm MVA (PHT): 5.2 s ( - ) Visual EF: 10 % RVDd(2D): 3.0 cm (1.9 cm-3.8 cmmm) Patient: ANGE MACKAY Study Date: 01/27/2018 Page 1 of 2 03:06 PM Continued Measurements: Chambers Valvular Assessment AV/MV Valvular Assessment TV/PV Name Value Name Value Name Value LADs: 5.1 cm MV DecTime: 158 m/s CVP (est.): 5 mmHg Additional Vessels Name Value Ao Ascendin.3 cm Findings: Left Ventricle: Dilated left ventricle. No LV hypertrophy. Severely reduced systolic LV function. The ejection fraction is visually estimated to be 10 %. Unable to assess diastolic dysfunction. Global akinesis with the exception of basal anterolateral. Right Ventricle: Normal size right ventricle. Left Atrium: The left atrium is moderately dilated. Right Atrium: The right atrium is mildly dilated. Mitral Valve: The mitral valve is normal in structure. There is restricted motion of the posterior leaflet. There is moderate posteriorly directed mitral regurgitation.. Aortic Valve: The aortic valve is tri-leaflet. Aortic sclerosis is present. Trivial aortic valve regurgitation. No aortic valve stenosis is present. Tricuspid Valve: The tricuspid valve is normal in appearance and function. Mild to moderate tricuspid valve regurgitation. The pulmonary artery pressure is moderately increased. Right ventricular systolic pressure measures 52mmHg. Pulmonic Valve: The pulmonic valve is normal in appearance and function. Mild pulmonic valve regurgitation is noted. There is no pulmonic stenosis seen. Aorta: The aorta is normal. Normal size aortic root measuring 2.7 cm. Normal size ascending aorta measuring 3.3 cm. IVC: The IVC is normal sized. Pericardium: No pericardial effusion. Exam Comments: (No Signature Object) Patient: ANGE MACKAY Study Date: 01/27/2018 Page 2 of 2 03:06 PM [id number]
[2018-01-27] MEDS ORDERED: ETOMIDATE 40 MG/20 ML INJ IV ONE (18:45)
--- NOTE | 2018-01-27 18:54 | CPIP ---
DATE OF PROCEDURE: 01/27/2018 PROCEDURE PERFORMED: 1. Intra-aortic balloon pump placement. 2. Right heart catheterization with Dayton-Davon catheter placement from a right femoral vein approach. COMPLICATIONS: None. INDICATION FOR THE PROCEDURE: Cardiogenic shock. HISTORY: The patient underwent bypass surgery under the care of Dr. Jason Collier earlier today. He wa s extubated quickly and briefly following the surgery, but then had some degree of cardiovascular col lapse, had to be reintubated. He had documented blood pressures in the systolic range of 40-45 for a pproximately 20 minutes in spite of Trendelenburg position, fluid resuscitation and multiple pressors . I was asked for consultation for placement of intra-aortic balloon pump to support the patient's c ardiovascular system, given that he has evidence of ongoing cardiogenic shock in spite of maximal med ication and pressure support. He also asked me to place a Dayton-Davon catheter to assist in the patien t's medical management, given his critical condition. PROCEDURE IN DETAIL: After emergency consent was implied by the critical nature of the patient's ill ness, he was taken to the cardiac catheterization laboratory already intubated and hypotensive on 3 p ressors, specifically norepinephrine, dobutamine, and vasopressin. His systolic blood pressure at th e time of arrival in the optical laboratory technician was 76 systolic. The region of the right groin was cleaned, preppe d, and draped in sterile fashion. Approximately 10 cc of 1% lidocaine was utilized for local anesthe christal. A micropuncture set was used to gain access to the right common femoral artery and vein. An 8- Bengali sheath was advanced and placed into the femoral artery, which comes with the intra-aortic ball oon pump device. The device was appropriately zeroed and flushed. The balloon pump wire was advance d into the aortic arch. The balloon pump was inserted under direct fluoroscopic guidance and the tip was placed just distal to the left subclavian take-off and aortic knob. Wire was removed. The cath eter was appropriately flushed, connected to the pneumatic compression device, as well as to the intr a-aortic balloon pump console and was noted to be augmenting well with a systolic augmentation of 117 systolic on the same pressor measurements. We turned our attention to the right common femoral vein where an 8.5 Bengali sheath was placed to acc ommodate the ICU Dayton-Davon catheter. This balloon tipped catheter was floated under direct fluorosco pic guidance into the right ventricle and then a Dayton wire was used to cross the pulmonary valve and advance this catheter into the right pulmonary artery system. The wire was removed. The catheter wa s flushed. A PA sat was obtained which was found to be 64 with a simultaneous AO sat of 93. The Fic k cardiac output was measured to be 6.0 L/minute with balloon pump augmentation. The device was then connected to pressure, wedge was measured at 30 to 35. A and V waves with a mean of [address] Ivan Collier was in the optical laboratory technician for the procedure and these results were directly communicated to briseida lopez. He will return to the ICU intubated and in critical but more stable condition on multiple pressures w ith one-to-one balloon pump support. IMPRESSION: Successful intra-aortic balloon pump and Dayton-Davon catheter placement without complicati on. /[id number]/MODL
--- NOTE | 2018-01-27 21:41 | CPEKG ---
Test Reason : OPEN Blood Pressure : / mmHG Vent. Rate : 098 BPM Atrial Rate : 096 BPM P-R Int : 127 ms QRS Dur : 154 ms QT Int : 457 ms P-R-T Axes : 071 000 057 degrees QTc Int : 584 ms Sinus rhythm CONCERN OF POSSIBLE PREEXCITATION PATHWAY NOT NOTED ON PRIOR EKG Confirmed by Obed Zuniga ([id number]) on 01/27/2018 9:40:54 PM Referred By: Confirmed By:Obed Zuniga
[2018-01-27] MEDS: FAMOTIDINE 20 MG/NACL 50 ML IV SCH (21:47)
[2018-01-27] MEDS: fentaNYL/NACL 100 ML IV SCH (21:49)
[2018-01-27] MEDS: CHLORHEXIDINE GLUCONATE 15 ML UDL PO SCH (21:51)
[2018-01-27] MEDS ORDERED: MAGNESIUM SULF 1 GM/DEXTROSE 100 ML IV ONE (23:00)
[2018-01-28] MEDS: ceFAZolin 2 GM/DEXTROSE 100 ML IV SCH ×4 (00:13→22:42)
[2018-01-28] MEDS: PROPOFOL/EMULSION 100 ML IV SCH ×3 (00:16→22:47)
[2018-01-28] MEDS: VASOPRESSIN 25 UNIT in NS 250 ML IV SCH ×3 (00:26→20:22)
[2018-01-28] MEDS: POTASSIUM Cl (KCl) 50 ML IV PRN (01:10)
[2018-01-28 04:16] LABS: PLATELET COUNT 100 10^3/uL (150-400)
--- NOTE | 2018-01-28 06:56 | SOAPPROG ---
SOAP Progress Note Assessment/Plan: POD #1: CABGx3 (THORNTON-LAD, SVG-OM1, SVG-OM2, SVG-D2, EVH L thigh POD #1: Femoral IABP/[place] CAD with prior [place] s/p CABGx4 - Wean drips as tolerated - ASA/statin/BB for secondary prevention when appropriate Acute blood loss anemia - Stable s/p 2U PRBC Acute hypoxic respiratory failure - Wean to extubate as tolerated Ischemic cardiomyopathy with systolic dysfunction (pre-op LVEF 20%, post-op 10% ) - Continue IABP 1:1 DVT prophylaxis - SCDs Subjective: Sedated on ventilator. Objective: Vital Signs Temp Pulse Resp BP Pulse Ox 37.9 C 100 18 102/56 L 98 01/28/18 06:00 01/28/18 06:00 01/28/18 06:00 01/28/18 06:00 01/28/18 06:00 Laboratory Results 01/28/18 04:00 01/28/18 04:00 01/27/18 01/28/18 01/29/18 05:59 05:59 05:59 Intake Total 400 2618.3 1290.1 Output Total 775 2275 110 Balance -375 343.3 1180.1 PT 12.9 SEC (12.0-15.0) 01/25/18 09:30 INR 0.95 (0.83-1.16) 01/25/18 09:30 Physical Exam - Physical Exam General Appearance: no apparent distress EENT: No scleral icterus (R), No scleral icterus (L) Respiratory: other (FiO2 40%), No normal breath sounds Cardiac/Chest: regular rate, rhythm Abdomen: non-tender, soft, No distended Skin: normal color, warm/dry Extremities: No pedal edema Neuro/Psych: other (sedated on ventilator ) ICD10 Worksheet Patient Problems: Problems Problem Status Onset Acute blood loss anemia Acute CAD (coronary artery disease) Acute Cardiomyopathy Acute S/P coronary artery bypass graft x 4 Acute
[2018-01-28] MEDS: CHLORHEXIDINE GLUCONATE 15 ML UDL PO SCH ×2 (08:37→22:38)
[2018-01-28] MEDS: PANTOPRAZOLE SODIUM 40 MG VIAL IVP SCH (08:37)
[2018-01-28] MEDS: FAMOTIDINE 20 MG/NACL 50 ML IV SCH ×2 (08:37→20:22)
[2018-01-28] MEDS: fentaNYL/NACL 100 ML IV SCH (08:37)
[2018-01-28] MEDS: DOBUTamine/DEXTROSE 250 ML IV SCH (08:51)
[2018-01-28] MEDS ORDERED: ASPIRIN 81 MG CHEWABLE TAB PO SCH (09:00)
[2018-01-28] MEDS ORDERED: PANTOPRAZOLE SODIUM 40 MG TAB PO SCH (09:00)
[2018-01-28] MEDS: MUPIROCIN 2% 22 GM OINT NS SCH (09:30)
[2018-01-28] MEDS: SENNOSIDES/DOCUSATE SODIUM TAB PO SCH (10:21)
--- NOTE | 2018-01-28 12:29 | ASMTCMCOM ---
CM Note CM Note Notes: Patient is POD 1 planned CABG x 4. Unfortunately, he was reintubated in the ICU post operatively. There are plans to wean today. Patient is normally independent: he lives alone and is employed. His brother from [facility] is in town, and he has supportive friends at bedside. PT/OT have not been able to eval yet. Case Management will follow for d/c planning. Date Signed: 01/28/2018 12:28 PM Electronically Signed By:Meri Goss RN
[2018-01-28] MEDS ORDERED: D50W 25 GM/50 ML SYR IVP PRN (15:48)
--- NOTE | 2018-01-28 16:14 | PDINTPN ---
Physician Practice Manager Progress Note Assessment/Plan: 62 M with previously undiagnosed CAD who rode his bicycle to a nuc stress test revealing severe CAD and his echo showed an EF of 20%. He was admitted for CABG on 01/27 which was uncomplicated intraoperatively, but within 1-2 hours postop he developed refractory hypotension and severe hypoxemia requiring emergent re- intubation and multiple pressors after significant fluid boluses. He returned to the laborer shaft sinking and had an IABP placed on 1:1 with improved hemodynamics. * Hypotension- cardiogenic. His EF postop was only 10% and he remains on 1:1 plus dobutamine, levophed and vasopressin. Titrating drips down today and consider reducing ratio on IABP tomorrow. UOP is adequate and renal function intact. No evidence of ACS, adrenal or sepsis. Hct stable. PAC shows no significant PHTN and CO/I 5.4/2.9 with CVP 7. * Acute respiratory failure with hypoxia requiring mechanical ventilation. His oxygen requirement has improved and he remains on minimal ventilatory support. I favor removal of the IABP prior to extubation to minimize bleeding risk, particularly with platelets of [address] and falling. Will discuss with Dr. Garcia. No known lung disease to circumvent extubation when ready. ABG this am showed respiratory alkalosis, so RR decreased. * DM- he was on an insulin drip earlier today but at very low dose. One episode of hypoglycemia so given D50. Drip dc'd in favor of low dose sliding scale. Target 80-160 * * critical care time 45 minutes Subjective: taken to laborer shaft sinking postop for refractory hypotension and placement of IABP. Intubated emergently prior to transfer. Objective: Vital Signs Temp Pulse Resp BP Pulse Ox 38.2 C 93 14 103/49 L 98 01/28/18 15:00 01/28/18 15:18 01/28/18 15:18 01/28/18 15:00 01/28/18 15:18 Laboratory Results 01/28/18 04:00 01/28/18 12:40 01/27/18 01/28/18 01/29/18 05:59 05:59 05:59 Intake Total 400 3368.3 1290.1 Output Total 775 2275 705 Balance -375 1093.3 585.1 PT 12.9 SEC (12.0-15.0) 01/25/18 09:30 INR 0.95 (0.83-1.16) 01/25/18 09:30 Physical Exam - Physical Exam General Appearance: no apparent distress, obtunded, obese EENT: PERRL/EOMI, No scleral icterus (R), No scleral icterus (L) Neck: supple, No lymphadenopathy (R), No lymphadenopathy (L) Respiratory: lungs clear, normal breath sounds, decreased breath sounds, other ( incision clean and dry as well as chest tube entry), No respiratory distress, No accessory muscle use, No rhonchi Cardiac/Chest: regular rate, rhythm, No edema, No JVD Abdomen: non-tender, soft, No distended, No guarding Skin: normal color, warm/dry, No cyanosis Lymphatic: no adenopathy Extremities: No pedal edema Neuro/Psych: motor weakness, No abnormal 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
[2018-01-28] MEDS ORDERED: PROTOCOL POTASSIUM 1 DOSE MISC PRN (16:39)
[2018-01-28] MEDS: INSULIN LISPRO 100 UNIT/1 ML VIAL STANDARD SC SCH (18:28)
[2018-01-28] MEDS: ACETAMINOPHEN 650 MG SUPP PR PRN (19:57)
[2018-01-29] MEDS: fentaNYL/NACL 100 ML IV SCH ×2 (03:11→22:58)
[2018-01-29] MEDS: PROPOFOL/EMULSION 100 ML IV SCH ×2 (03:12→16:14)
[2018-01-29] MEDS: DOBUTamine/DEXTROSE 250 ML IV SCH ×2 (03:31→23:03)
[2018-01-29] MEDS: VASOPRESSIN 25 UNIT in NS 250 ML IV SCH ×2 (05:06→15:49)
[2018-01-29] MEDS: INSULIN LISPRO 100 UNIT/1 ML VIAL STANDARD SC SCH ×2 (08:05→11:56)
[2018-01-29] MEDS ORDERED: ASPIRIN RECTAL 300 MG SUPP PR SCH (09:00)
[2018-01-29] MEDS: CHLORHEXIDINE GLUCONATE 15 ML UDL PO SCH ×2 (09:29→21:07)
[2018-01-29] MEDS: PANTOPRAZOLE SODIUM 40 MG VIAL IVP SCH (09:31)
--- NOTE | 2018-01-29 10:10 | SOAPPROG ---
SOAP Progress Note Assessment/Plan: POD #2: CABGx3 (THORNTON-LAD, SVG-OM1, SVG-OM2, SVG-D2), EVH L thigh POD #2: Femoral IABP/[place] CAD with prior [place] s/p CABGx4 - ASA/statin/BB for secondary prevention when appropriate Cardiogenic shock - On Dobutamine and Vaso gtts. Off Levo. IABP 1:2 this am. Ischemic cardiomyopathy with systolic dysfunction (pre-op LVEF 20%, post-op 10% ) - Continue IABP Acute hypoxic respiratory failure - Currently on 40% FiO2 - Patient re-intubated yesterday. - Wean to extubate as tolerated. Acute blood loss anemia - H&H 11.3/32.5 - Stable s/p 2U PRBC Secondary thrombocytopenia d/t CPB - Plt 63k (100k) - Will follow. Hold ASA. Hyperlipidemia - Lipitor when appropriate Type 2 DM with nephropathy, retinopathy and neuropathy - Currently on Insulin DVT prophylaxis - SCDs Subjective: Patient sedated on the vent. Objective: Vital Signs Temp Pulse Resp BP Pulse Ox 37.8 C 109 H 14 108/51 L 99 01/29/18 09:00 01/29/18 09:00 01/29/18 09:00 01/29/18 09:00 01/29/18 09:00 Laboratory Results 01/29/18 04:25 01/29/18 04:25 01/28/1818 01/30/18 05:59 05:59 05:59 Intake Total 3368.3 3740.1 Output Total 2275 1800 Balance 1093.3 1940.1 PT 12.9 SEC (12.0-15.0) 01/25/18 09:30 INR 0.95 (0.83-1.16) 01/25/18 09:30 Physical Exam - Physical Exam General Appearance: WD/WN Respiratory: lungs clear, decreased breath sounds, other (no wheezing, rhonchi, rales. ) Cardiac/Chest: tachycardia, other (regular rhythm. sternum stable, sternotomy c /d/i. ) Abdomen: non-tender, soft, other (hypoactive BS) Skin: warm/dry Extremities: other (no edema) Neuro/Psych: other (sedated) ICD10 Worksheet Patient Problems: Problems Problem Status Onset Acute blood loss anemia Acute CAD (coronary artery disease) Acute Cardiomyopathy Acute S/P coronary artery bypass graft x 4 Acute
[2018-01-29] MEDS: ACETAMINOPHEN 650 MG SUPP PR PRN (10:17)
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
[2018-01-29] MEDS ORDERED: D50W 25 GM/50 ML SYR IVP PRN (17:59)
[2018-01-29] MEDS: INSULIN LISPRO 100 UNIT/1 ML VIAL HIGH SC SCH (18:25)
[2018-01-29] MEDS ORDERED: ALBUMIN 5% 250 ML IV PRN (19:01)
[2018-01-30] MEDS: PROPOFOL/EMULSION 100 ML IV SCH ×2 (03:09→17:00)
[2018-01-30] MEDS: INSULIN LISPRO 100 UNIT/1 ML VIAL HIGH SC SCH ×4 (04:13→17:36)
[2018-01-30 05:40] LABS: PLATELET COUNT 48 10^3/uL (150-400)
--- NOTE | 2018-01-30 09:10 | SOAPPROG ---
SOAP Progress Note Assessment/Plan: POD #3: CABGx3 (THORNTON-LAD, SVG-OM1, SVG-OM2, SVG-D2), EVH L thigh POD #3: Femoral IABP/[place] CAD with prior [place] s/p CABGx4 - ASA/statin/BB/ACEi for secondary prevention when appropriate Cardiogenic shock - Continues on Dobutamine and Vaso gtts. SBP 100's. IABP 1:2. - Wean Vaso as tolerated. Ischemic cardiomyopathy with systolic dysfunction (pre-op LVEF 20%, post-op 10% ) - Continue IABP, likely through weekend. - BB/ACEi when appropriate Acute hypoxic respiratory failure - Currently on 40% FiO2 - Patient re-intubated 11/. - Wean to extubate as tolerated. Acute blood loss anemia - H&H 10.1/29.9 - Stable s/p 2U PRBC Secondary thrombocytopenia likely d/t CPB - Worsening with Plt 48k (63k). - HIT pending. - Heme consult if persists - Will follow. Hold ASA. Hyperlipidemia - Lipitor when appropriate Type 2 DM with nephropathy, retinopathy and neuropathy - Currently on SSI DVT prophylaxis - SCDs Subjective: Patient sedated on the vent. Objective: Vital Signs Temp Pulse Resp BP Pulse Ox 36.6 C 107 H 14 102/54 L 96 01/30/18 08:00 01/30/18 08:48 01/30/18 08:48 01/30/18 08:00 01/30/18 08:48 Laboratory Results 01/30/18 05:20 01/30/18 05:20 01/29/18 01/30/18 01/31/18 05:59 05:59 05:59 Intake Total 3740.1 2230 Output Total 1800 1455 Balance 1940.1 775 PT 12.9 SEC (12.0-15.0) 01/25/18 09:30 INR 0.95 (0.83-1.16) 01/25/18 09:30 Physical Exam - Physical Exam General Appearance: WD/WN Neck: supple Respiratory: lungs clear, decreased breath sounds (bases) Cardiac/Chest: tachycardia, other (Regular rhythm. No murmurs or gallops. + Pericardial rub. Sternum stable. Sternotomy c/d/i. ) Abdomen: soft, other (Non-distended, hypoactive BS. ) Skin: normal color, warm/dry Extremities: other (Warm, minimal lower extremity edema) Neuro/Psych: other (sedated) ICD10 Worksheet Patient Problems: Problems Problem Status Onset Acute blood loss anemia Acute CAD (coronary artery disease) Acute Cardiomyopathy Acute S/P coronary artery bypass graft x 4 Acute
[2018-01-30] MEDS: CHLORHEXIDINE GLUCONATE 15 ML UDL PO SCH ×2 (09:16→21:32)
[2018-01-30] MEDS: PANTOPRAZOLE SODIUM 40 MG VIAL IVP SCH (09:40)
[2018-01-30] MEDS ORDERED: NS 250 ML IV ONE (11:00)
[2018-01-30] MEDS: VASOPRESSIN 25 UNIT in NS 250 ML IV SCH ×2 (12:33→22:32)
[2018-01-30] MEDS ORDERED: NS 1,000 ML IV SCH (13:45)
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
[2018-01-30] MEDS: fentaNYL/NACL 100 ML IV SCH (18:49)
[2018-01-30] MEDS: DOBUTamine/DEXTROSE 250 ML IV SCH (22:32)
[2018-01-31] MEDS: INSULIN LISPRO 100 UNIT/1 ML VIAL HIGH SC SCH ×2 (00:42→06:18)
--- NOTE | 2018-01-31 07:18 | SOAPPROG ---
SOAP Progress Note Assessment/Plan: POD #4: CABGx3 (THORNTON-LAD, SVG-OM1, SVG-OM2, SVG-D2, EVH L thigh POD #4: Femoral IABP/[place] Drips: Dobutamine 5, Vasopressin 0.04 CAD with prior [place] s/p CABGx4 - Wean drips as tolerated - ASA/statin/BB for secondary prevention when appropriate Acute blood loss anemia - Stable s/p 2U PRBC Acute hypoxic respiratory failure - Wean to extubate as tolerated Ischemic cardiomyopathy with systolic dysfunction (pre-op LVEF 20%, post-op 10% ) and post-op cardiogenic shock - Plan for removal of IABP today - Lasix started for fluid overload - CTs to remain for high output DVT prophylaxis - SCDs Subjective: Sedated Objective: Vital Signs Temp Pulse Resp BP Pulse Ox 36.7 C 97 16 110/47 L 99 01/31/18 04:00 01/31/18 07:00 01/31/18 07:00 01/31/18 07:00 01/31/18 07:00 Laboratory Results 01/31/18 04:41 01/31/18 04:41 01/30/18 01/31/18 02/01/18 05:59 05:59 05:59 Intake Total 2230 3964.6 Output Total 1455 1846 75 Balance 775 2118.6 -75 PT 12.9 SEC (12.0-15.0) 01/25/18 09:30 INR 0.95 (0.83-1.16) 01/25/18 09:30 Physical Exam - Physical Exam General Appearance: no apparent distress EENT: No scleral icterus (R), No scleral icterus (L) Respiratory: No respiratory distress Cardiac/Chest: regular rate, rhythm Abdomen: non-tender, soft, No distended Skin: normal color, warm/dry Extremities: pedal edema Neuro/Psych: other (sedated ) ICD10 Worksheet Patient Problems: Problems Problem Status Onset Acute blood loss anemia Acute CAD (coronary artery disease) Acute Cardiomyopathy Acute S/P coronary artery bypass graft x 4 Acute
[2018-01-31] MEDS ORDERED: FUROSEMIDE 40 MG/4 ML VIAL IVP ONE ×2 (08:23→13:50)
[2018-01-31] MEDS: CHLORHEXIDINE GLUCONATE 15 ML UDL PO SCH (09:25)
[2018-01-31] MEDS: PANTOPRAZOLE SODIUM 40 MG VIAL IVP SCH (09:26)
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
[2018-01-31] MEDS: INSULIN LISPRO 100 UNIT/ML SC SCH ×3 (12:30→19:58)
[2018-01-31] MEDS ORDERED: ALBUMIN 25% 200 ML IV ONE (13:50)
--- NOTE | 2018-01-31 16:02 | ASMTCMCOM ---
CM Note CM Note Notes: "Family Meeting" Attendance: Patient's mother-Mira, Brothers Sadia & Teja, Friends Mohan and Cecilia Jazz (Mohan was a college roommate of patient's). Brief Hx of patient: his father was an Ortho Surgeon in [place] who in 1999. Mother is remarried and just moved to [place]. His brother Thiago lives in [place], Teja lives in [place], [place], Clifford in [place] and Carlos in [place]. Patient bikes everywhere. 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 He is extremely private-lives alone. He enjoys puzzles and word games. When he was dx having DM, he lost 60#'s and followed a healthy diet-DM no longer an issue. Very compliant in caring for himself. Very close to Mohan and Cecilia Schulz, they consider him extended family and if needed, they would like for him to spend time with them after discharge. Mohan is a director digital catalogue and Cecilia an RN. They had questions concerning length of stay in the hospital and needs after hospitalization. Patient to have the balloon pump removed today and possibly he may be extubated. Therapies will eval and treat and make recommendations for future discharge needs. Family very pleased with the information they are receiving from the MD's and RN's who are caring for Mejia. Date Signed: 01/31/2018 04:01 PM Electronically Signed By:Diann Ramsey LCSW
[2018-01-31] MEDS: fentaNYL/NACL 100 ML IV SCH ×2 (18:36→19:46)
[2018-01-31] MEDS: PROPOFOL/EMULSION 100 ML IV SCH (18:36)
[2018-01-31] MEDS: DOBUTamine/DEXTROSE 250 ML IV SCH (22:38)
[2018-02-01] MEDS: CHLORHEXIDINE GLUCONATE 15 ML UDL PO SCH ×2 (00:19→08:57)
[2018-02-01] MEDS: INSULIN LISPRO 100 UNIT/ML SC SCH ×6 (00:36→19:26)
[2018-02-01] MEDS ORDERED: FUROSEMIDE 40 MG/4 ML VIAL IVP ONE (03:45)
[2018-02-01] MEDS: FUROSEMIDE 100 MG in D5W 100 ML IV SCH ×2 (04:06→14:20)
--- NOTE | 2018-02-01 08:16 | SOAPPROG ---
SOAP Progress Note Assessment/Plan: POD #5: CABGx4 (THORNTON-LAD, SVG-OM1, SVG-OM2, SVG-D2, EVH L thigh POD #5: Femoral IABP/[place] (both removed) Drips: Dobutamine 5, Lasix 10 CAD with prior [place] s/p CABGx4 - ASA/statin/BB for secondary prevention when appropriate Acute blood loss anemia with thrombocytopenia - HCT Stable s/p 2U PRBC - Platelets rebounding Acute hypoxic respiratory failure - Wean to extubate as tolerated Ischemic cardiomyopathy with systolic dysfunction (pre-op LVEF 20%, post-op 10% ) and post-op cardiogenic shock - IABP removed 11/12 - Continue Dobutamine 5 - Continue Lasix gtt for fluid overload - CTs to remain d/t high output DVT prophylaxis - Heparin SQ once platelets > 100 - Continue SCDs Subjective: Following commands. Comfortable. Objective: Vital Signs Temp Pulse Resp BP Pulse Ox 37.3 C 122 H 25 H 131/71 H 92 02/01/18 05:50 02/01/18 07:00 02/01/18 07:00 02/01/18 07:00 02/01/18 07:00 Laboratory Results 02/01/18 05:00 02/01/18 05:00 01/31/18 02/01/18 02/02/18 05:59 05:59 05:59 Intake Total 3964.6 1796 Output Total 1846 3830 Balance 2118.6 -2034 PT 12.9 SEC (12.0-15.0) 01/25/18 09:30 INR 0.95 (0.83-1.16) 01/25/18 09:30 Physical Exam - Physical Exam General Appearance: alert, no apparent distress EENT: ET tube, No scleral icterus (R), No scleral icterus (L) Neck: normal inspection Respiratory: No respiratory distress Cardiac/Chest: tachycardia Abdomen: non-tender, soft, No distended Skin: normal color, warm/dry Extremities: pedal edema Neuro/Psych: no motor/sensory deficits, alert ICD10 Worksheet Patient Problems: Problems Problem Status Onset Acute blood loss anemia Acute CAD (coronary artery disease) Acute Cardiomyopathy Acute S/P coronary artery bypass graft x 4 Acute
[2018-02-01] MEDS ORDERED: POTASSIUM Cl (KCl) 50 ML IV ONE ×2 (08:46→14:23)
[2018-02-01] MEDS: PANTOPRAZOLE SODIUM 40 MG VIAL IVP SCH (08:53)
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
[2018-02-01] MEDS: INSULIN GLARGINE 100 UNITS/ML UNIT SC SCH (12:06)
[2018-02-01] MEDS: ALBUMIN 25% 100 ML IV SCH ×2 (12:16→18:40)
[2018-02-01] MEDS: fentaNYL/NACL 100 ML IV SCH (13:45)
[2018-02-01] MEDS: DOBUTamine/DEXTROSE 250 ML IV SCH (21:16)
[2018-02-01] MEDS ORDERED: DILTIAZEM HCL/D5W 125 ML IV SCH (23:30)
[2018-02-01] MEDS ORDERED: DILTIAZEM 25 MG/5 ML VIAL IVP ONE ×2 (23:45→23:47)
[2018-02-02] MEDS: CHLORHEXIDINE GLUCONATE 15 ML UDL PO SCH ×3 (01:14→21:18)
[2018-02-02] MEDS: INSULIN LISPRO 100 UNIT/ML SC SCH ×7 (01:14→23:05)
[2018-02-02] MEDS: ALBUMIN 25% 100 ML IV SCH ×2 (01:17→06:21)
[2018-02-02] MEDS: FUROSEMIDE 100 MG in D5W 100 ML IV SCH (02:22)
--- NOTE | 2018-02-02 06:44 | SOAPPROG ---
SOAP Progress Note Assessment/Plan: Assessment: POD#5 CABG x 4 (THORNTON-LAD, SVG-OM1, SVG-OM2, SVG-D2, EVH L thigh, Femoral IABP/[place] Drips: Dobutamine 5, Lasix 10 mg/h, Cardizem 10 mg/h CAD with prior [place] s/p CABGx4 - Wean drips as tolerated - ASA/statin/BB for secondary prevention when appropriate Acute expected blood loss anemia - Stable s/p 2U PRBC - DVT prophylaxis w SCDs Acute hypoxic respiratory failure - Wean to extubate as tolerated Postoperative PSVT - onset last noc, responsive to diltiazem Ischemic cardiomyopathy with systolic dysfunction (pre-op LVEF 20%, post-op 10% ) and post-op cardiogenic shock - IABP out yest - Lasix started for fluid overload - Pleural CTs to remain for high output Plan: Decrease cardizem to 5 mg/h Colloid prn CVP < 15 Restart vasopressin for MAP < 65 02/02/18 06:42 Subjective: Lightly sedated on vent. Affirms comfort, nodding head and moving limbs appropriately. Objective: Vital Signs Temp Pulse Resp BP Pulse Ox 37.2 C 112 H 28 H 104/58 L 88 L 02/02/18 04:00 02/02/18 06:00 02/02/18 06:00 02/02/18 06:00 02/02/18 06:00 Laboratory Results 02/02/18 04:55 02/02/18 04:55 02/01/18 02/02/18 02/03/18 05:59 05:59 05:59 Intake Total 1796 2249 Output Total 3830 2430 Balance -2034 -181 PT 12.9 SEC (12.0-15.0) 01/25/18 09:30 INR 0.95 (0.83-1.16) 01/25/18 09:30 Physical Exam - Physical Exam General Appearance: alert, no apparent distress Respiratory: lungs clear (grossly), other (CTs x 2 to individual pleurovacs, thin serosang drainage, no air leak) Cardiac/Chest: regular rate, rhythm, other (Sternotomy CDI. Vwires intact) Abdomen: normal bowel sounds, non-tender, soft Skin: warm/dry Extremities: swelling (1+ gen) ICD10 Worksheet Patient Problems: Problems Problem Status Onset Acute blood loss anemia Acute CAD (coronary artery disease) Acute Cardiomyopathy Acute S/P coronary artery bypass graft x 4 Acute
[2018-02-02] MEDS: INSULIN GLARGINE 100 UNITS/ML UNIT SC SCH (08:29)
[2018-02-02] MEDS: PANTOPRAZOLE SODIUM 40 MG VIAL IVP SCH (08:29)
[2018-02-02] MEDS ORDERED: ALBUMIN 5% 500 ML IV ONE (09:18)
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
[2018-02-02] MEDS ORDERED: ALBUMIN 5% 500 ML BOTTLE IV ONE (09:32)
[2018-02-02] MEDS ORDERED: INSULIN GLARGINE 100 UNITS/ML UNIT SC ONE (10:00)
[2018-02-02] MEDS ORDERED: VASOPRESSIN 25 UNIT in NS 250 ML IV SCH (10:30)
[2018-02-02] MEDS: PROPOFOL/EMULSION 100 ML IV SCH ×2 (11:15→17:56)
[2018-02-02] MEDS ORDERED: VECURONIUM BROMIDE 10 MG VIAL ONE (11:35)
[2018-02-02] MEDS ORDERED: DIGOXIN 500 MCG/2 ML AMP ONE (11:45)
[2018-02-02] MEDS: fentaNYL/NACL 100 ML IV SCH (13:45)
[2018-02-02] MEDS ORDERED: AMIODARONE HCL 150 MG/3 ML VIAL IV ONE (14:00)
[2018-02-02] MEDS ORDERED: DIGOXIN 500 MCG/2 ML AMP IVP ONE ×2 (14:00)
[2018-02-02] MEDS ORDERED: VECURONIUM BROMIDE 10 MG VIAL IV ONE (14:00)
[2018-02-02] MEDS ORDERED: AMIODARONE HCL 150 MG/3 ML VIAL IVP ONE (14:00)
[2018-02-02] MEDS ORDERED: PETROLAT,WHT/MIN OIL/SOD CHL 3.5 GM OPHT.OINT EACHEYE PRN (14:42)
--- NOTE | 2018-02-02 15:57 | GCON ---
DATE OF CONSULTATION: 02/02/2018 REASON FOR CONSULTATION: Opinion regarding acute kidney injury. HISTORY OF PRESENT ILLNESS: The patient is a 62-year-old gentleman with diabetes mellitus, type 2, f or several years that is complicated by retinopathy, proteinuria, and vascular disease. He was seen by Dr. Li in early 2017, was noted to have an abnormal cardiac exam. Cardiac evaluation was i nitiated and was noted to have significant multivessel disease. The patient was admitted on 01/26/20 18; cardiac catheterization showed multiple vessel coronary artery disease. He underwent 4-vessel by pass surgery on 01/27/2018. He had a THORNTON to LAD and vein grafts to his first obtuse marginal, circu mflex, and diagonal. Preoperatively, his ejection fraction was 20%. Postoperatively, it had dropped to 10%. Postop course showed his blood pressures generally stable in the 110s to 120s until last ni ght. He did have a fever and dropped his blood pressure to 60/30; now he has increasing FiO2 require ments, diminishing urine output, and rising serum creatinine. PAST MEDICAL HISTORY: Significant for: 1. Type 2 diabetes. 2. Proteinuria. 3. Hypertension. 4. Degenerative disk disease. 5. Hyperlipidemia. 6. Status post appendectomy. 7. Anemia. 8. Hyperparathyroidism. 9. History of hepatitis B. 10. History of shingles. 11. Recent 4-vessel coronary artery bypass grafting. CURRENT MEDICATIONS: Include: 1. Dobutamine. 2. Diltiazem at 125 cc an hour. 3. Fentanyl. 4. He did receive some albumin yesterday. 5. Protonix. 6. Vasopressin. 7. Propofol. FAMILY HISTORY: Positive for coronary disease and stroke; he has 4 brothers. SOCIAL HISTORY: He has no children. He is single. He does not use tobacco or IV or recreational dr billings. He does drink 2-3 alcoholic beverages a week. REVIEW OF SYSTEMS: Review of systems is not obtainable from the patient as he is sedated on the vent ilator. PHYSICAL EXAMINATION: VITAL SIGNS: Blood pressure 91/47, pulse 87, respirations 34, temperature 38. 4. Urine output 1.5 L yesterday, less than 100 cc so far today. His chest tube was 900 cc out as we ll. GENERAL: He is sedated in the prone position on the ventilator. His FiO2 has come down from 10 0% to 60%. HEENT: He is bearded. There is an endotracheal tube in place. NECK: No lymphadenopath y or thyromegaly. HEART: Regular. Tones are distant. No rub is appreciated, but he is prone. VAN GS: Coarse breath sounds bilaterally with occasional rhonchi and occasional wheezes. ABDOMEN: Soft , not distended. EXTREMITIES: Minimal to trace edema. NEUROLOGIC: No asterixis. SKIN: Changes o f arterial and venous insufficiency in his lower extremities bilaterally. LYMPH: No palpable lympha denopathy or lymphedema. MUSCULOSKELETAL: No effusions or tenderness. LABORATORY: Serum sodium today is 148, potassium 4.3, chloride 111, carbon dioxide 25, BUN 73, creat inine 1.7, glucose 230. Several hours later, serum creatinine was 2.9, potassium 4.4, glucose 227. WBC 14.7, hemoglobin 9.1, hematocrit 27, platelet count 108,000. pH 7.5, pCO2 29, pO2 47. AST 175, ALT 152, albumin 3.3. Calcium 9.1. Baseline serum creatinine between 1 and 1.1. Postoperatively, serum creatinine was stable between 0. 8 to 1.0 until after his hypotensive episode last night when his serum creatinine was subsequently 1. 7, and now 2.9. As an outpatient, he did have a 24-hour urine that showed 805 mg per day of protein excretion. IMPRESSION: 1. Shock, question is this cardiogenic (his ejection fraction has only been about 10%) versus possib le septic. He did have a fever last night and his white count is up a bit as well. 2. Acute kidney injury due to hypotension and shock. He is oliguric. 3. Acute respiratory failure, needing to be prone in order to adequately oxygenate. 4. Fever. RECOMMENDATIONS: 1. I have had a conversation with Critical Care Medicine as well as with the family. At this point, there is no urgent or emergent need for dialysis. I have counseled the patient's family regarding r enal replacement options including continuous renal replacement therapy and acute hemodialysis. The differences of technique, etc., were explained to the patient's family, and all questions were answer ed to their satisfaction. 2. We will continue to follow his laboratory. 3. If dialysis becomes necessary, I suspect we will need to do CRRT. 4. Continue supportive care. Thank you for allowing me to participate in the care of your patient. If there are any questions, pl ease do not hesitate to contact us. We will be following along with you. /[id number]/MODL
--- NOTE | 2018-02-02 16:02 | WOCRNPDOC ---
WOCRN Advanced Assessment Note - Skin Integrity Problem, Advanced Assess Sacrum Pressure Injury Dressing Type: Mepilex Border Exudate Amount: None Gil Wound Tissue: Blanching, Erythema (to 5 cm gil wound circumferentially) Site Measurement - Head-to-Toe Length X Width X Depth (cm): 0.5x0.9x0 Pressure Injury Stage: Deep Tissue Injury (DTI) Pressure Injury Present on Admit: No Skin Integrity Problem Comment: Wound care will round again next week and follow this wound. Upper Back Dressing Type: Open to Air Exudate Amount: None Gil Wound Tissue: Erythema, Non-blanching Site Measurement - Head-to-Toe Length X Width X Depth (cm): 1x4.5x0 Skin Integrity Problem Comment: Unknown etiology of non blanching erythematic wound. Has some red petechiae within wound margins. May be a pressure injury. Wound care will sign off.
[2018-02-02] MEDS ORDERED: VECURONIUM BROMIDE 10 MG VIAL IV PRN (16:15)
[2018-02-02] MEDS ORDERED: AMIODARONE HCL 200 ML IV ONE (17:21)
--- NOTE | 2018-02-02 17:32 | ECHO ---
[email or web address] [address] [address] Main: [phone] Fax: Transthoracic Echocardiogram Name: ANGE MACKAY MR#: [id number] Study Date: 02/02/2018 Study Time: 12:34 PM Date of : 1955 Age: 62 year(s) Height: ( ) Weight: ( ) BSA: Gender: Male Examination: Limited Echo Indication: compare to prior Image Quality: Contrast: Requested by: Obed Zuniga BP: / Heart Rate: Rhythm: Indication: compare to prior Procedure Staff Waste Disposal Attendant: Lizbet Wesley RDCS Reading Physician: Requesting Provider: Measurements: Chambers Valvular Assessment AV/MV Valvular Assessment TV/PV Normal Normal Normal Name Value Range Name Value Range Name Value Range Visual EF: 15 % TR Vmax: 2.54 mm/s ( - ) TR PGmax: 26 mmHg ( - ) syst. PAP: 31 mmHg ( - ) Continued Measurements: Valvular Assessment TV/PV Name Value CVP (est.): 5 mmHg Findings: Left Ventricle: Dilated left ventricle. Severely reduced systolic LV function. The ejection fraction is visually estimated to be 15 %. Right Ventricle: Normal size right ventricle. Normal RV function. Mitral Valve: The mitral valve is normal in appearance and function. Mild to moderate mitral regurgitation. Tricuspid Valve: The tricuspid valve is normal in appearance and function. Mild to moderate tricuspid valve regurgitation. Pericardium: No pericardial effusion. Patient: ANGE MACKAY Study Date: 02/02/2018 Page 1 of 2 12:34 PM (No Signature Object) Patient: ANGE MACKAY Study Date: 02/02/2018 Page 2 of 2 12:34 PM [id number]
[2018-02-02] MEDS: DOBUTamine/DEXTROSE 250 ML IV SCH (17:56)
[2018-02-03] MEDS ORDERED: AMIODARONE HCL 540 MG in D5W 300 ML IV ONE
[2018-02-03] MEDS ORDERED: POTASSIUM Cl (KCl) 50 ML IV ONE ×2 (00:33→19:42)
[2018-02-03] MEDS: PROPOFOL/EMULSION 100 ML IV SCH (00:47)
[2018-02-03] MEDS: INSULIN LISPRO 100 UNIT/ML SC SCH ×6 (04:42→23:12)
--- NOTE | 2018-02-03 06:37 | SOAPPROG ---
SOAP Progress Note Assessment/Plan: Assessment: POD#6 CABG x 4 (THORNTON-LAD, SVG-OM1, SVG-OM2, SVG-D2) compl by vasodilatory shock and severe hypoxemia req IABP and reintubation Drips: Dobutamine 5, Amio 0.5 Nutrition: Tube feeds CAD with prior MO s/p CABGx4 - ASA/statin/BB for secondary prevention when appropriate Acute expected blood loss anemia w thrombocytopenia - Stable s/p 2U PRBC. No evidence active bleeding. - DVT prophylaxis w SCDs Acute hypoxic respiratory failure - Vent management per pulm - Pleural CTs in place Postoperative PSVT - Aflutter POD#4, responsive to diltiazem; recurrence yest assoc with hypotension and MOD. Med therapy escalated, DC CVSN prn. Ischemic cardiomyopathy with severe LVSD (pre-op LVEF 20%, post-op 10%) and post -op cardiogenic shock - IABP out POD#4. - ARF post hemodynamic instability yest. Renal now following for poss CRRT. Plan: Cont supportive care per multidisciplinary team. DC CVSN/rhythm manangement and PA cath per cards. 02/03/18 06:36 Subjective: Sedated on vent, prone position Objective: Vital Signs Temp Pulse Resp BP Pulse Ox 37.3 C 119 H 26 H 106/57 L 100 02/03/18 04:00 02/03/18 06:00 02/03/18 06:00 02/03/18 06:00 02/03/18 06:00 Microbiology 02/01/18 23:43 - Final Sputum, Induced/Suctioned Laboratory Results 02/03/18 05:20 02/03/18 05:20 02/02/18 02/03/18 02/04/18 05:59 05:59 05:59 Intake Total 2249 2314 Output Total 2430 1462 Balance -181 852 PT 12.9 SEC (12.0-15.0) 01/25/18 09:30 INR 0.95 (0.83-1.16) 01/25/18 09:30 FIO2 down to 60% Recurrent AF/FL overnoc, no sustained RVR Holding MAP > 70 with improved UOP, sl decr in Cr, and stable Ks CTOP modest Precautionary blood/sputum cxs unremarkable Physical Exam - Physical Exam General Appearance: no apparent distress Respiratory: other (pleural CTs to pleurovac, thin serosang drainage, no air leak) Cardiac/Chest: tachycardia Skin: warm/dry Extremities: swelling (1+) ICD10 Worksheet Patient Problems: Problems Problem Status Onset Acute blood loss anemia Acute CAD (coronary artery disease) Acute Cardiomyopathy Acute S/P coronary artery bypass graft x 4 Acute
--- NOTE | 2018-02-03 08:16 | GCON ---
CARDIOLOGY CONSULTATION DATE OF CONSULTATION: 02/02/2018 HISTORY OF PRESENT ILLNESS: The patient is a 62-year-old male who presented as an outpatient to a nu clear stress test identifying significant and multi-segmental perfusion deficit as well as wall motio n abnormalities and reduced ejection fraction, consistent with possible ischemic cardiomyopathy. The patient ultimately underwent cardiac catheterization and was found to have multivessel coronary dise ase with reduced ejection fraction and ejection fraction less than 20%. It was felt that he may bene fit from coronary artery bypass grafting. His postoperative course was complicated by hypotension on postoperative day #1 resulting in requirement for emergency placement of intra-aortic balloon pump t o support the patient's blood pressure. The patient's blood pressure was supported with intra-aortic balloon pump for the next several days and his status gradually seemed to improve. The balloon pump was removed, but unfortunately, the patient had to be reintubated for respiratory failure. At time of my evaluation, the patient was noted to be hypotensive, tachycardiac, and was in atrial fl utter with 2:1 conduction, and a systolic blood pressure of 90. I was asked to see the patient emerg ently for this condition. Both Dr. Jason Collier and Dr. Dominik Castelan were in attendance at the bedside, a s were multiple members of the ICU staff. Because of hypotension with associated tachycardia, we immediately performed a synchronized cardiover mignon x2 with subsequent return of his rhythm to normal sinus rhythm at approximately 78 with minimal improvement in his blood pressure. The patient rapidly reverted to atrial flutter on both occasions and it became clear that attempts to shock him out of this rhythm and maintain sinus rhythm would be unlikely to be successful in the absence of antiarrhythmic therapy. The patient received intravenous bolus of amiodarone, as well as digoxin 0.25 and amiodarone 150 x1, and we waited 30 minutes with the plan to give that drug again. Cardizem drip was stopped because of his history of chronotropic incompetence and severe ischemic cardiomyopathy. The patient was also n oted to be severely hypoxemic with a PaO2 of 41 on 100% FiO2 via the vent with a known endotracheal p osition of the endotracheal tube. This, of course, is consistent with a large alveolar to arterial m ismatch and was thought to be possibly related to a ventilation-perfusion mismatch. For this reason, the patient was changed to a prone position with almost immediate recovery in his hypoxemia. Dr. Viv sherman was able to dial down on his FiO2 with subsequent improvement in his oxygen saturation and status . As his blood pressure stabilized, an additional dose of the amiodarone was given and an amiodarone drip was started because the patient remained in atrial flutter with 2:1 conduction and a heart rate of 140 with a mean arterial pressure of 70. I was asked to see the patient a second time later in the day because of his increased blood pressure . The patient was in a prone position, mean arterial pressure of 69 with a heart rate of 149, and he remained somewhat hypotensive and severely oliguric with increases in his creatinine over the course of the day from 1.7 to a BUN and creatinine of 81 and 2.9, when it was 73 and 1.7 earlier in the day . The patient's lactic acid level as arterial sample did improve from 5 to 4.3. His liver enzymes w ere also noted to be elevated with an AST of 175, ALT of 152, total protein of 5.7, and albumin of 3. 3. Because of the patient has ongoing tachycardia and relative hypotension with evidence of end-orga n perfusion deficit and probable acute on chronic renal insufficiency, I did perform an elective card ioversion. The patient was in the prone position, was given a bolus of propofol to ensure adequate sedation. Th e patches were placed in the right anterior position and over the auscultatory triangle posteriorly o jodi the left lung. Pressure was applied to the posterior pad as the patient was in the prone positio n. Synchronized synchrony was identified with the patches in place with all QRSs being marked, aid t he patient underwent an urgent DC cardioversion with 360 joules of biphasic counter energy delivered with patches in the anterior-posterior position with subsequent return of the rhythm to sinus at a ra te of approximately 80. The mean arterial pressure was lower, although the pulse pressure amplitude was increased post-cardioversion, and for this reason, we gave a small bolus of dobutamine to see if the heart rate increase would improve his blood pressure and his mean arterial pressure. I do not be lieve that inotropic agents are likely to cause increased contractility given the severe nature of is chemic cardiomyopathy, the thought being that increasing his heart rate artificially with inotropic a gents may improve his overall cardiac output. Boluses of fluid were also given to see if this would improve his cardiac output given that we had definite room to move on his oxygen saturation given alessia t it was noted to be 99% to 100% on his current FiO2. IMPRESSION/PLAN: Severe ischemic cardiomyopathy with evidence of cardiogenic shock, complicated by a trial tachydysrhythmia responsive to antiarrhythmic agent, as well as synchronized countershock. Bec ause of his evidence of acute liver and renal injury, every effort will be made to try to maintain no rmal sinus rhythm. We will not likely be able to use amiodarone long-term given his hepatic insuffic iency and liver enzyme elevation. If he does not have improvement in his urine output with maintenan ce of sinus rhythm, I think it would be reasonable to consider placing the patient on renal replaceme nt therapy and Nephrology has been consulted today to ask about the possibility of renal replacement therapy. During the course of the day, an echocardiogram was performed to rule out right heart enlargement or echocardiographic evidence of pulmonary hypertension and/or right heart dilation and failure related to a pulmonary embolus and this was not identified. It was not felt to be safe to move the patient f or CT angiogram and certainly delivering contrast at this time when he has oliguric renal failure wou ld be likely to cause further damage to his kidneys. The patient is critically ill with multisystem organ failure, including his heart, lungs, and kidneys with definite injury to his liver as well, and I think his prognosis is guarded at best. I spent approximately 1 hour and 15 minutes of total bedside time on 2 separate occasions and discuss ed the patient's clinical situation on multiple occasions with Dr. Dominik Castelan, Dr. Jason Collier, as well as with the patient's extended family, and the multidisciplinary staff. /[id number]/MODL
--- NOTE | 2018-02-03 09:35 | SOAPPROG ---
SOAP Progress Note Assessment/Plan: Assessment: 1. JEAN on CKD Cr rising, but UO now picking up dramatically. I feel this can be improved further by potential pressor adjustment/treatment of rhythm/rate control. Will hold off on CRRT for now, and follow labs. 2. Cards Low EF/post op heart. BP has been better in sinus, now back in Afib. Dr. Zuniga will see, and adjust his pressors/inotropes. 3. Anemia Hg dropping. Would consider transfusing. 4. Diabetes On SSI. Plan: 02/03/18 09:31 Subjective: Sedated. Clinically more stable Objective: Vital Signs Temp Pulse Resp BP Pulse Ox 37.3 C 146 H 26 H 83/46 L 96 02/03/18 04:00 02/03/18 09:00 02/03/18 09:00 02/03/18 09:00 02/03/18 09:00 Microbiology 02/01/18 23:43 - Final Sputum, Induced/Suctioned Laboratory Results 02/03/18 05:20 02/03/18 05:20 02/02/18 02/03/18 02/04/18 05:59 05:59 05:59 Intake Total 2249 2314 Output Total 2430 1462 375 Balance -181 852 -375 PT 12.9 SEC (12.0-15.0) 01/25/18 09:30 INR 0.95 (0.83-1.16) 01/25/18 09:30 Physical Exam - Physical Exam EENT: ET tube Respiratory: lungs clear Cardiac/Chest: tachycardia, irregularly irregular Abdomen: soft Male Genitalia: other (arriaza) Extremities: other (positive thigh and PS edema) Neuro/Psych: other (sedated) ICD10 Worksheet Patient Problems: Problems Problem Status Onset Acute blood loss anemia Acute CAD (coronary artery disease) Acute Cardiomyopathy Acute S/P coronary artery bypass graft x 4 Acute
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
[2018-02-03] MEDS: CHLORHEXIDINE GLUCONATE 15 ML UDL PO SCH ×2 (09:53→20:31)
[2018-02-03] MEDS: INSULIN GLARGINE 100 UNITS/ML UNIT SC SCH (09:54)
[2018-02-03] MEDS: PANTOPRAZOLE SODIUM 40 MG VIAL IVP SCH (10:12)
[2018-02-03] MEDS: fentaNYL/NACL 100 ML IV SCH (11:30)
[2018-02-03] MEDS: MILRINONE/DEXTROSE 100 ML IV SCH ×2 (11:30→19:15)
--- NOTE | 2018-02-03 11:37 | ASMTCMCOM ---
CM Note CM Note Notes: Pt admitted for CABG with EF of 20% after riding bike to the horticultural therapist's office. Had hypotensive crisis and respiratory failure days after CABGx4 and reintubated in the ICU. Pt still on ventilator, on tube feeds and going in and out of rapid A fib with multiple attempts at cardioversion. Pt normally lives independently and is employed in [employer]. Pt has extensive family and friends in the room each day including a brother from [place]. Family meeting held 01/31, see note. Pt's condition still too unstable to consider therapies or discharge POC at this time. CM to follow. Date Signed: 02/03/2018 11:36 AM Electronically Signed By:Libby Lin
[2018-02-03] MEDS ORDERED: AMIODARONE HCL 100 ML IV ONE ×2 (16:00→19:30)
[2018-02-03] MEDS ORDERED: AMIODARONE HCL 150 MG/100 ML BAG (1.5 MG/ML) IV ONE ×2 (16:07→18:17)
[2018-02-03] MEDS: AMIODARONE HCL 200 ML IV SCH ×2 (16:30→23:20)
--- NOTE | 2018-02-03 16:44 | SOAPPROG ---
SOAP Progress Note Assessment/Plan: Assessment: CHF consultation performed and dictated. Also Cardioversion x 2 by me done lg. 62 y/o man with severe 3V CAD and pre-operative LVEF of 20% s/p CABG x 6V and afib with RVR and continued respiratory failure and cardiogenic shock. Today back into afib at 130bpm this afternoon with SBP 75mmHg. CVP 5. PLAN: 1)Amiodarone 150mg IV bolus x 1. 2)increase Amiodarone gtt to 1mg/min for eight hours then back to 0.5mg/min thereafter. 3)convert back to NSR 4)NS 100cc/hr x 5hrs for total of 500cc to run CVP 6-10mmhg to avoid hypotension. 5)wean off IV DBT over next hour and use Milrinone gtt at 0.375mcg/kg/min 6)if SBP < 90, discuss with Drs. Garcia and Flip, starting Dopamine gtt 7)hopefully in NSR and SBP > 90mmHg, will start Aldactone soon. Thanks. Will follow with you. 02/03/18 16:40 Objective: Vital Signs Temp Pulse Resp BP Pulse Ox 36.6 C 149 H 26 H 82/47 L 98 02/03/18 12:00 02/03/18 16:10 02/03/18 16:10 02/03/18 16:00 02/03/18 16:10 Microbiology 02/01/18 23:43 - Final Sputum, Induced/Suctioned Laboratory Results 02/03/18 05:20 02/03/18 11:50 02/02/18 02/03/18 02/04/18 05:59 05:59 05:59 Intake Total 2249 2314 350 Output Total 2430 1462 695 Balance -181 852 -345 PT 12.9 SEC (12.0-15.0) 01/25/18 09:30 INR 0.95 (0.83-1.16) 01/25/18 09:30 ICD10 Worksheet Patient Problems: Problems Problem Status Onset Acute blood loss anemia Acute CAD (coronary artery disease) Acute Cardiomyopathy Acute S/P coronary artery bypass graft x 4 Acute
[2018-02-03] MEDS ORDERED: NS 500 ML IV ONE (16:45)
[2018-02-03] MEDS ORDERED: DOPamine/DEXTROSE 400 MG/250 ML BAG IV ONE (18:08)
[2018-02-03] MEDS ORDERED: ALBUMIN 5% 250 ML BOTTLE IV ONE (18:24)
[2018-02-03 19:00] LABS: PLATELET COUNT 98 10^3/uL (150-400)
[2018-02-03] MEDS ORDERED: ALBUMIN 5% 250 ML IV ONE (19:30)
--- NOTE | 2018-02-03 19:56 | CPIP ---
DATE OF PROCEDURE: 02/03/2018 PROCEDURE PERFORMED: Electrical cardioversion. INDICATIONS: Atrial fibrillation with fast ventricular response and hypotension and cardiogenic shoc k. CONSENT: Verbally done by family members, as patient is intubated and sedated. TECHNICAL DIFFICULTIES: None. DESCRIPTION OF PROCEDURE: The patient was in the intensive care unit post bypass surgery in cardioge isra shock. He had biphasic pads on his anterior and posterior chest. He was initially in atrial fib rillation at 130 beats per minute with a blood pressure of 75/40. He was sedated while on the ventil ator already. A 250-joule synchronized shock was delivered which converted him to sinus rhythm. He stayed in sinus rhythm with a heart rate of 80 for about 2 minutes and then went into recurrent atria l fibrillation. A 2nd 250-joule synchronized shock was delivered, which converted him back into sinu s rhythm and he has stayed that way for greater than 25 minutes now. His blood pressure in sinus nikki t up to 92/60. COMPLICATIONS: None. IMPRESSION: Successful cardioversion of atrial fibrillation to sinus rhythm with two 250-joule synch ronized shocks. /[id number]/MODL
--- NOTE | 2018-02-03 20:07 | GCON ---
CHF CONSULT DATE OF CONSULTATION: 02/03/2018 REFERRING PHYSICIAN: Joaquín Collier MD REASON FOR CONSULTATION: Evaluate gentleman with persistent cardiogenic shock status post high-risk CABG with preoperative LVEF of 20%. HISTORY OF PRESENT ILLNESS: I was asked by Dr. Jason Collier to consult for the above reasons. The lizzette poe is a 62-year-old gentleman with no previous cardiac problems who was found to have an LVEF of 20 % with 3-vessel severe coronary artery disease 9 days ago. He underwent a 6-vessel CABG 6 days ago w ith persistent hypotension and cardiogenic shock requiring a balloon pump. He has also had problems with atrial fibrillation and atrial flutter. An echo done yesterday demonstrates an LVEF of 15% with normal RV function and [id number] mitral and tricuspid insufficiency. This morning he was in fast A-Fib with hypotension. He was shocked several times and went into sinus rhythm and started on an amiodarone drip. He did well for about 5-6 hours and then went into recurrent atrial fibrillation at a heart rate of 130 half an hour ago with a blood pressure of 75. He is still intubated and pedro luis mariam. His CVP is 6. PAST MEDICAL HISTORY: Coronary artery disease as per HPI, acute renal failure and diabetes. PAST SURGICAL HISTORY: CABG x6 vessels 7 days ago and remote appendectomy. CURRENT MEDICATIONS: Amiodarone drip at 0.5 mg/min; aspirin 81 mg per day; atorvastatin 40 mg per da y; dobutamine at 2 mcg/k/min; and Milrinone drip at 0.375 mcg/k/min. SOCIAL HISTORY: No tobacco or alcohol use. FAMILY HISTORY: Positive for coronary artery disease. REVIEW OF SYSTEMS: Patient is intubated and cannot give an accurate review of systems. PHYSICAL EXAM: GENERAL: A critically ill gentleman, sedated on a ventilator, in no obvious pain. V ITALS: Blood pressure 75/46, respirations 24, heart rate 130 in atrial fibrillation. EYES: No alcides dice noted. NECK: Jugular venous pressure to 7 cm. No nuchal rigidity. LUNGS: Clear bilaterally. HEART: Tachycardic, irregular, with positive S3 gallop but no obvious rubs or murmurs. ABDOMEN: Soft, nontender. No guarding or rebound. EXTREMITIES: 1-2+ peripheral pulses including femoral and pedal pulses. No edema noted. NEURO: Sedated affect and mood. SKIN: No bleeding or cyanosis. LABS: White count 13.3, hematocrit 26, platelets 90,000, MCV 94. Sodium 145, potassium 4.5, chlorid e 113, bicarb 22, BUN 108, creatinine 2.6, glucose 151, AST 175, ALT 152. ABG of pH 7.52, pCO2 26, P O2 143. COURSE OF EVENTS: The patient was given an extra bolus of sedation, and a 250 joule synchronized levi ck was done which converted him to sinus rhythm for approximately 2 minutes at 80 beats per minute, a nd then he went back into atrial fibrillation at 130 beats per minute. A second synchronized shock a t 250 joules was done which converted him to sinus rhythm, and he has been in that rhythm now for the last 20 minutes. His blood pressure has gone back up to 95/50. RECOMMENDATIONS: 1. Amiodarone 150 mg IV bolus. 2. Increase amiodarone drip to a milligram per minute x6 hours, then back to 0.5 mg/min thereafter. 3. Cardioversion back to sinus rhythm as described above. 4. Wean off dobutamine over the next hour as long as systolic blood pressure above 90. 5. Continue on Milrinone. 6. Normal saline 100 cc/h x5 hours for a total of 500 cc to run his CVP 6-10. 7. If he develops hypotension in sinus rhythm, would then start on dopamine also. 8. His best chance of recovery is maintaining sinus rhythm at a blood pressure above 90, and hopeful ly we can add spironolactone in the next day and then an TOM inhibitor in the next 2-3 days once his creatinine improves. Thank you for allowing me to participate in the care of this patient. I will follow along closely. /[id number]/MODL
[2018-02-04] MEDS ORDERED: POTASSIUM Cl (KCl) 50 ML IV ONE (00:58)
[2018-02-04] MEDS: PROPOFOL/EMULSION 100 ML IV SCH ×3 (02:03→21:22)
[2018-02-04] MEDS: INSULIN LISPRO 100 UNIT/ML SC SCH ×6 (04:59→23:10)
[2018-02-04] MEDS: MILRINONE/DEXTROSE 100 ML IV SCH ×3 (05:16→21:23)
[2018-02-04 05:18] LABS: PLATELET COUNT 117 10^3/uL (150-400)
--- NOTE | 2018-02-04 05:24 | CPIP ---
PROCEDURE PERFORMED: Urgent synchronized DC cardioversion. BRIEF CLINICAL HISTORY: Mr. Mejia Goldsmith recently underwent coronary artery bypass surgery and his course has been complicated by pump failure and hypotension with cardiogenic shock, renal insufficien cy which has been progressive, and elevated liver enzymes. He has also had pulmonary failure as well , requiring intubation and ventilator support. The patient was cardioverted last evening and stayed in sinus rhythm for approximately 2 and a half hours. His medications have been adjusted. We have d ecided to try to get him off dobutamine, put him on Milrinone at the suggestion of the nephrology ser vice. We have also obtained a consultation with Dr. Teja Casillas which will happen later today. This morning, the patient's heart rate is in the 140s with a mean arterial pressure of 55 with inadequate urine output and therefore we have decided to proceed with cardioversion. PROCEDURE IN DETAIL: After emergency consent was implied by the nature of the patient's blood pressu re and hemodynamics, the patient received initially 300 joules of biphasic countershock, delivered wi th a patch in the anterior and posterior position with subsequent return of his rhythm to normal sinu s for approximately 2-3 minutes and then reverting back to atrial fibrillation with rapid ventricular response and low blood pressure. We then proceeded with another synchronized cardioversion at 360 joules of biphasic countershock, del ivered with a patch in the anterior and posterior position with subsequent return of the rhythm to no rmal sinus, which as of the time of this dictation, the patient held for the majority of the day. The patient will be seen in consultation by our heart failure expert, Dr. Teja Casillas. /[id number]/MODL
[2018-02-04] MEDS: CHLORHEXIDINE GLUCONATE 15 ML UDL PO SCH ×2 (08:11→21:19)
[2018-02-04] MEDS: PANTOPRAZOLE SODIUM 40 MG VIAL IVP SCH (08:11)
--- NOTE | 2018-02-04 08:19 | SOAPPROG ---
SOAP Progress Note Assessment/Plan: Assessment: POD#7 CABG x 4 (THORNTON-LAD, SVG-OM1, SVG-OM2, SVG-D2) compl by vasodilatory shock and severe hypoxemia req IABP and reintubation Drips: Dopamine1.5, milrinone 0.375, Amio 0.5 Nutrition: Tube feeds CAD with prior [place] s/p CABGx4 - ASA/statin/BB for secondary prevention when appropriate Acute expected blood loss anemia w thrombocytopenia - Stable s/p 3U PRBC. No evidence active bleeding. - DVT prophylaxis w SCDs Acute hypoxic respiratory failure - Vent management per pulm - Pleural CTs in place Postoperative PSVT - Aflutter POD#4, responsive to diltiazem; recurrence rapid fib/flutter POD#5 assoc with hypotension and MOD. - DC CVSN and med therapy alteration/escalation per cards. Use of amio may be limited by transaminitis. Ischemic cardiomyopathy with severe LVSD (pre-op LVEF 20%, post-op 10%) and post -op cardiogenic shock - IABP out POD#4. - ARF and shock liver post hemodynamic instability. Renal following. Plan: Cont supportive care as per multidisciplinary team. DC CVSN/rhythm management per cards. 18 08:19 Subjective: Sedated on vent Objective: Vital Signs Temp Pulse Resp BP Pulse Ox 38.3 C 123 H 31 H 121/53 H 95 18 04:00 02/04/18 07:55 02/04/18 07:55 02/04/18 06:00 02/04/18 07:55 Microbiology 02/01/18 23:43 - Final Sputum, Induced/Suctioned Laboratory Results 02/04/18 05:00 02/04/18 05:00 02/03/18 02/04/18 02/05/18 05:59 05:59 05:59 Intake Total 2314 2394 Output Total 1462 1920 Balance 852 474 PT 12.9 SEC (12.0-15.0) 01/25/18 09:30 INR 0.95 (0.83-1.16) 01/25/18 09:30 SR held overnoc with stable hemodynamics and improved UOP FIO2 down to 40%. Supine position resumed. CTOP at removal criteria AST/ALT on the rise Physical Exam - Physical Exam General Appearance: no apparent distress Respiratory: other (pleural tubes to pleurovac, mostly serous drainage, no air leak) Cardiac/Chest: regular rate, rhythm, other (Sternotomy CDI) Abdomen: soft Skin: warm/dry Extremities: swelling (1+ gen) ICD10 Worksheet Patient Problems: Problems Problem Status Onset Acute blood loss anemia Acute CAD (coronary artery disease) Acute Cardiomyopathy Acute S/P coronary artery bypass graft x 4 Acute
[2018-02-04] MEDS: INSULIN GLARGINE 100 UNITS/ML UNIT SC SCH (09:34)
--- NOTE | 2018-02-04 09:35 | PDINTPN ---
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 He was admitted for CABG on 01/27 which was uncomplicated intraoperatively, but within 1-2 hours postop he developed refractory hypotension and severe hypoxemia requiring emergent re- intubation and multiple pressors after significant fluid boluses. 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 * Hypotension- cardiogenic. His EF postop is only 10% (preop 20). Change dobutamine to Milrinone yesterday. Blood pressure and cardiac index have improved. * Acute respiratory failure with hypoxia requiring mechanical ventilation. Oxygenation markedly improved with prone ventilation, and continues to be good in the supine position now. Respiratory rate airway pressures increased this morning after suctioning, but no signs of pneumothorax. I suspect he has some air stacking which has already started to improve with increased sedation. * DM- he was on an insulin drip 01/28 but at very low dose but dc'd in favor of sliding scale. Target 100-160; BSs better with increased Lantus. * Thrombocytopenia: Still low but improving * Acute kidney injury: Due to ATN/prerenal state. BUN, creatinine trending down and urine output is up, likely due to improved cardiac output, blood pressure, and oxygen saturations. * Afib/flutter: Occurred 02/01 evening, recurred 02/02 and associated with hypotension. Successful defibrillation, but quickly recurred. Cardizem stopped, started on amiodarone, digoxin, rate came down from 140. Has been cardioverted multiple times in the sinus rhythm, but AFib has returned. Current we in sinus tachycardia. * Nutrition: On tube feeds * Anemia: Status post transfusion of 1 unit packed red blood cells 02/03. * Elevated LFTs. Could be due to cardiogenic shock or amiodarone. Plan: Observed a little longer on increased sedation to see if this continues to reduce his respiratory rate, heart rate, and airway pressures. Follow BSs, LFTs, CBC. Cardiovert if AFib returns. Continue DVT prophylaxis. He's unlikely to survive unless systolic function improves. 40 minutes CC time, managing sedation, respiratory failure with increased airway pressure, hemodynamics/volume status. 02/04/18 09:43 Subjective: Intubated, sedated Objective: Vital Signs Temp Pulse Resp BP Pulse Ox 37.5 C 125 H 24 H 132/68 H 100 02/04/18 08:00 02/04/18 08:00 02/04/18 08:00 02/04/18 08:00 02/04/18 08:00 Microbiology 02/01/18 23:43 - Final Sputum, Induced/Suctioned Laboratory Results 02/04/18 05:00 02/04/18 05:00 02/03/18 02/04/18 02/05/18 05:59 05:59 05:59 Intake Total 2314 2394 Output Total 1462 1920 250 Balance 852 474 -250 PT 12.9 SEC (12.0-15.0) 01/25/18 09:30 INR 0.95 (0.83-1.16) 01/25/18 09:30 Physical Exam - Physical Exam General Appearance: unresponsive, No alert EENT: normal ENT inspection Neck: normal inspection Respiratory: lungs clear, normal breath sounds Cardiac/Chest: tachycardia, No edema Abdomen: normal bowel sounds, non-tender Skin: normal color, warm/dry Extremities: normal inspection Neuro/Psych: alert, normal mood/affect, oriented x 3 ICD10 Worksheet Patient Problems: Problems Problem Status Onset Acute blood loss anemia Acute CAD (coronary artery disease) Acute Cardiomyopathy Acute S/P coronary artery bypass graft x 4 Acute
--- NOTE | 2018-02-04 10:24 | SOAPPROG ---
SOAP Progress Note Assessment/Plan: Assessment: 1. JEAN on CKD -Cr stable 2.6-2.7, though BUN rising; he appears to be stabilizing after several cardioversions yesterday, now with reduced pressor requirement and improving UOP this morning, may start to come around -Will hold off on CRRT for now, and follow labs. -Total inputs ~50cc/hr now, hold off on additional IVF given pulm edema, though this also was improving on latest CXR, consider adding IVF if Cr rises and will need hypotonic if Na rises further, check lytes later today 2. AF / HFrEF -s/p multiple DCCV yesterday, now on milrinone, off dopamine -Has sinus tach now 3. Resp alkalosis - -Pt tachypneic and breathing over vent, d/w Dr. Castelan, vent adjusted and sedation increased -Cont to follow Plan: 02/04/18 10:24 02/04/18 10:26 02/04/18 10:29 Subjective: Dopamine turned off overnight, remains on milrinone, propofol Objective: Vital Signs Temp Pulse Resp BP Pulse Ox 37.5 C 125 H 24 H 132/68 H 100 02/04/18 08:00 02/04/18 08:00 02/04/18 08:00 02/04/18 08:00 02/04/18 08:00 Microbiology 02/01/18 23:43 - Final Sputum, Induced/Suctioned Sputum Culture - Final Laboratory Results 02/04/18 05:00 02/04/18 05:00 02/03/18 02/04/18 02/05/18 05:59 05:59 05:59 Intake Total 2314 2394 Output Total 1462 1920 250 Balance 852 474 -250 PT 12.9 SEC (12.0-15.0) 01/25/18 09:30 INR 0.95 (0.83-1.16) 01/25/18 09:30 Physical Exam - Physical Exam General Appearance: other (sedated) EENT: ET tube Respiratory: decreased breath sounds Cardiac/Chest: tachycardia, other (b/l chest tubes) Abdomen: soft Male Genitalia: other (arriaza) Extremities: No swelling ICD10 Worksheet Patient Problems: Problems Problem Status Onset Acute blood loss anemia Acute CAD (coronary artery disease) Acute Cardiomyopathy Acute S/P coronary artery bypass graft x 4 Acute
[2018-02-04 11:07] LABS: INR 1.5 (0.83-1.16); PROTIME(PATIENT) 18.3 SEC (12.0-15.0)
[2018-02-04] MEDS: AMIODARONE HCL 200 ML IV SCH ×2 (11:16→21:23)
--- NOTE | 2018-02-04 12:01 | SOAPPROG ---
SOAP Progress Note Assessment/Plan: Assessment: 62 y/o man with severe 3V CAD and pre-operative LVEF of 20% s/p CABG x 6V and afib with RVR doing better last 18hrs maintaining NSR. Able to wean down to just Milrinone gtt at 0.375 mcg/kg/min and Amiodarone gtt at 0.5mg/min. More stable and starting to make some urine. PLAN: 1)no change in current meds. 2)goal CVP 6-10mmHg. 3)recheck CMP at 5pm to make sure no shock liver 4)hopefully start Aldactone and ACEI inhibitor this weekend as ATN resolves. 5)start to wean down Milrinone gtt slow starting tomorrow if stays out of afib. 02/04/18 11:56 Subjective: intubated, sedation. Objective: Vital Signs Temp Pulse Resp BP Pulse Ox 37.5 C 101 H 24 H 96/52 L 97 02/04/18 09:00 02/04/18 11:00 02/04/18 11:00 02/04/18 11:00 02/04/18 11:00 Microbiology 02/01/18 23:43 - Final Sputum, Induced/Suctioned Sputum Culture - Final Laboratory Results 02/04/18 05:00 02/04/18 10:50 02/03/18 02/04/18 02/05/18 05:59 05:59 05:59 Intake Total 2314 2394 Output Total 1462 1920 400 Balance 852 474 -400 PT 18.3 SEC (12.0-15.0) H 02/04/18 10:50 INR 1.50 (0.83-1.16) H 02/04/18 10:50 Physical Exam - Physical Exam General Appearance: other (sedated on ventilator) EENT: ET tube Neck: supple Respiratory: lungs clear Cardiac/Chest: regular rate, rhythm, gallop, systolic murmur (1/6 COLT heard) Peripheral Pulses: 2+: carotid (R), carotid (L), femoral (R), femoral (L), dorsalis-pedis (R), dorsalis-pedis (L) Abdomen: No non-tender, No rebound, No ascites Skin: warm/dry Extremities: No pedal edema Neuro/Psych: other (sedated) ICD10 Worksheet Patient Problems: Problems Problem Status Onset Acute blood loss anemia Acute CAD (coronary artery disease) Acute Cardiomyopathy Acute S/P coronary artery bypass graft x 4 Acute
[2018-02-04] MEDS: HEPARIN 5,000 UNIT/0.5 ML INJ SC SCH ×2 (14:36→21:20)
[2018-02-04] MEDS: fentaNYL/NACL 100 ML IV SCH (17:10)
[2018-02-05] MEDS ORDERED: AMIODARONE HCL 100 ML IV ONE (01:00)
[2018-02-05] MEDS: INSULIN LISPRO 100 UNIT/ML SC SCH ×6 (04:11→23:50)
[2018-02-05] MEDS: PROPOFOL/EMULSION 100 ML IV SCH ×4 (05:06→23:54)
[2018-02-05] MEDS: HEPARIN 5,000 UNIT/0.5 ML INJ SC SCH ×3 (05:12→21:53)
[2018-02-05 05:15] LABS: PLATELET COUNT 118 10^3/uL (150-400)
[2018-02-05] MEDS: fentaNYL/NACL 100 ML IV SCH ×2 (06:03→14:01)
--- NOTE | 2018-02-05 07:20 | SOAPPROG ---
SOAP Progress Note Assessment/Plan: POD #8: CABGx4 (THORNTON-LAD, SVG-OM1, SVG-OM2, SVG-D2), EVH L thigh, right femoral IABP/swan Drips: Milrinone 0.375, Dopamine 4, Amiodarone CAD with prior [place] s/p CABGx4 - ASA/statin/BB for secondary prevention when appropriate Acute blood loss anemia with thrombocytopenia - HCT Stable s/p 3U PRBC - Platelets > 100 Acute hypoxic respiratory failure - Wean to extubate as tolerated Ischemic cardiomyopathy with systolic dysfunction (pre-op LVEF 20%, post-op 10% ) and post-op cardiogenic shock - IABP removed 01/31 - CI > 2.2 - Continue Milrinone/dopamine for support ARF - BUN/Cr climbing - Adequate UOP without electrolyte abnormalities - Further mgmt as per nephrology Postoperative paroxysmal atrial fibrillation - Continue amiodarone - CHADS-VASC 4 - consider therapeutic prophylaxis DVT prophylaxis - Heparin SQ/Continue SCDs Subjective: Sedated. Objective: Vital Signs Temp Pulse Resp BP Pulse Ox 37.6 C 106 H 22 H 99/49 L 93 02/05/18 05:57 02/05/18 05:57 02/05/18 05:57 02/05/18 05:57 02/05/18 05:57 Microbiology 02/01/18 23:43 - Final Sputum, Induced/Suctioned Sputum Culture - Final Laboratory Results 02/05/18 04:50 02/05/18 04:50 02/04/18 02/05/18 02/06/18 05:59 05:59 05:59 Intake Total 2394 1516.3 Output Total 1920 1865 Balance 474 -348.7 PT 18.3 SEC (12.0-15.0) H 02/04/18 10:50 INR 1.50 (0.83-1.16) H 02/04/18 10:50 Physical Exam - Physical Exam General Appearance: no apparent distress EENT: ET tube, No scleral icterus (R), No scleral icterus (L) Neck: normal inspection Respiratory: No respiratory distress Cardiac/Chest: tachycardia Abdomen: non-tender, soft, No distended Skin: normal color, warm/dry Extremities: pedal edema Neuro/Psych: other (sedated ) ICD10 Worksheet Patient Problems: Problems Problem Status Onset Acute blood loss anemia Acute CAD (coronary artery disease) Acute Cardiomyopathy Acute S/P coronary artery bypass graft x 4 Acute
[2018-02-05] MEDS: AMIODARONE HCL 200 ML IV SCH ×3 (08:08→23:51)
[2018-02-05] MEDS: INSULIN GLARGINE 100 UNITS/ML UNIT SC SCH (09:14)
[2018-02-05] MEDS: CHLORHEXIDINE GLUCONATE 15 ML UDL PO SCH ×2 (09:20→21:53)
[2018-02-05] MEDS: PANTOPRAZOLE SODIUM 40 MG VIAL IVP SCH (09:22)
[2018-02-05] MEDS: FUROSEMIDE 20 MG/2 ML VIAL IVP SCH ×3 (09:24→21:54)
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
--- NOTE | 2018-02-05 13:34 | SOAPPROG ---
[facility]ANS Progress Note Assessment/Plan: Assessment: 1. Coronary disease status post bypass grafting 2. Ischemic cardiomyopathy ejection fraction 10-20%. 3. Acute renal failure creatinine rising 3.0 4. Acute hepatic failure 5. Recurrent atrial fibrillation 6. Anemia postoperative Impression: Slow and steady improvement with maintenance of sinus rhythm overnight. Persistent need for inotropes. Continue current medical therapy with clinical follow-up. Bolus amiodarone for recurrent AFib. Creatinine peaking but still rising at 3.0. Will consider addition of afterload reduction in the next several days. Likely with Isordil /hydralazine. EKG for tomorrow considerations for biventricular pacing to help overall LV function. 02/05/18 13:35 Subjective: Called in last night for recurrent atrial fibrillation. This responded to 150 mg IV bolus of amiodarone. He has maintained sinus since that time. Attempts at weaning off inotropes were made but failed. Oxygenation remained stable. Blood pressure on inotropics support remains stable. Family is at the bedside today. Objective: Medications Generic Name Dose Route Start Last Admin Trade Name Margoth PRN Reason Stop Dose Admin Milrinone Lactate/Dextrose 100 mls @ 0 mls/hr 02/03/18 11:00 02/04/18 21:23 Primacor 200 Mcg/Ml (Premix) IV 08/02/18 10:59 100 mls CONT [facility] Protocol Titrate Aspirin 81 mg 01/28/18 09:00 01/28/18 10:20 Aspirin PO 07/27/18 08:59 Not Given DAILY GIANNA Amiodarone HCl 200 mls @ 0 mls/hr 02/03/18 16:30 02/05/18 08:08 Amiodarone Hcl IV 08/02/18 16:29 200 mls AD GIANNA As Directed Atorvastatin Calcium 40 mg 01/26/18 17:00 01/27/18 11:39 Lipitor PO 07/25/18 16:59 Not Given DAILY GIANNA Dopamine HCl/Dextrose 250 mls @ 0 mls/hr 02/03/18 19:30 02/04/18 23:05 Dopamine 1600 Mcg/Ml (Premix) IV 08/02/18 19:29 250 mls CONT [facility] Protocol Titrate Furosemide 20 mg 02/05/18 09:00 02/05/18 09:24 Lasix Injection IVP 08/04/18 08:59 20 mg Q6H [facility] Laboratory Tests 02/05/18 04:50 Creatinine 3.0 H Vital Signs Temp Pulse Resp BP Pulse Ox 38.0 C 105 H 26 H 102/53 L 95 02/05/18 11:55 02/05/18 12:59 02/05/18 12:59 02/05/18 12:59 02/05/18 12:59 Microbiology 02/01/18 23:43 - Final Sputum, Induced/Suctioned Sputum Culture - Final Laboratory Results 02/05/18 04:50 02/05/18 11:40 02/04/18 02/05/18 02/06/18 05:59 05:59 05:59 Intake Total 2394 1516.3 Output Total 1920 1865 725 Balance 474 -348.7 -725 PT 18.3 SEC (12.0-15.0) H 02/04/18 10:50 INR 1.50 (0.83-1.16) H 02/04/18 10:50 Physical Exam - Physical Exam General Appearance: unresponsive Neck: supple Respiratory: rhonchi Cardiac/Chest: regular rate, rhythm, other (S4 gallop) Abdomen: non-tender Skin: warm/dry, No rash ICD10 Worksheet Patient Problems: Problems Problem Status Onset Acute blood loss anemia Acute S/P coronary artery bypass graft x 4 Acute CAD (coronary artery disease) Acute Cardiomyopathy Acute
--- NOTE | 2018-02-05 14:24 | ASMTCMCOM ---
CM Note CM Note Notes: Patient contiues to require maximal support (respiratory and pressors). His brother Clifford and mother Rashida are at the bedside. We may want to consider having a conversation re: palliative care at some poing; however, patient is still unresponsive. Case Management will follow. Date Signed: 02/05/2018 02:23 PM Electronically Signed By:Meri Goss RN
[2018-02-05] MEDS: MILRINONE/DEXTROSE 100 ML IV SCH ×2 (15:37→23:54)
--- NOTE | 2018-02-05 17:30 | SOAPPROG ---
SOAP Progress Note Assessment/Plan: Assessment: 1. JEAN on CKD -Cr up slightly to 3.0 -Started on Lasix this morning with good response, using low dose at high frequency to attempt to avoid exacerbating any hypotension, yet help ease congestion in likely cardiorenal JEAN and promote forward flow -CVP ~12-13 -Will hold off on CRRT for now, and follow labs. 2. AF / HFrEF -s/p multiple DCCV yesterday, now on milrinone, dopamine resumed 02/04 -Has mild sinus tach now 3. Resp alkalosis - -Pt less tachypneic today, ABG improved -Cont to follow Plan: 02/05/18 17:28 02/05/18 17:30 Subjective: Pt had another episode of AF last night, given amio. Now on dopamine, milrinone. Currently ST. Started on lasix this morning with about 1L UOP since. Objective: Vital Signs Temp Pulse Resp BP Pulse Ox 37.4 C 106 H 24 H 103/55 L 96 02/05/18 16:00 02/05/18 17:00 02/05/18 17:00 02/05/18 17:00 02/05/18 17:00 Laboratory Results 02/05/18 04:50 02/05/18 11:40 02/04/18 02/05/18 02/06/18 05:59 05:59 05:59 Intake Total 2394 1516.3 Output Total 1920 1865 1240 Balance 474 -348.7 -1240 PT 18.3 SEC (12.0-15.0) H 02/04/18 10:50 INR 1.50 (0.83-1.16) H 02/04/18 10:50 Physical Exam - Physical Exam General Appearance: other (sedated) EENT: ET tube Respiratory: crackles Cardiac/Chest: tachycardia, other (b/l chest tubes) Abdomen: soft Extremities: swelling (minimal peripheral edema) ICD10 Worksheet Patient Problems: Problems Problem Status Onset Acute blood loss anemia Acute CAD (coronary artery disease) Acute Cardiomyopathy Acute S/P coronary artery bypass graft x 4 Acute
[2018-02-05] MEDS ORDERED: ALBUMIN 5% 250 ML BOTTLE IV ONE (20:15)
[2018-02-06] MEDS: INSULIN LISPRO 100 UNIT/ML SC SCH ×5 (03:14→19:23)
[2018-02-06] MEDS: FUROSEMIDE 20 MG/2 ML VIAL IVP SCH ×2 (03:15→19:30)
[2018-02-06 05:16] LABS: PLATELET COUNT 133 10^3/uL (150-400)
[2018-02-06] MEDS: HEPARIN 5,000 UNIT/0.5 ML INJ SC SCH ×3 (06:10→21:04)
--- NOTE | 2018-02-06 07:11 | SOAPPROG ---
SOAP Progress Note Assessment/Plan: POD #9: CABGx4 (THORNTON-LAD, SVG-OM1, SVG-OM2, SVG-D2), EVH L thigh, right femoral IABP/swan Drips: Milrinone 0.375, Dopamine 6, Amiodarone CAD with prior AR s/p CABGx4 - ASA/statin/BB for secondary prevention when appropriate Acute blood loss anemia with thrombocytopenia - HCT Stable s/p 3U PRBC - Platelets > 100 Acute hypoxic respiratory failure, ventilator dependent - Consider tracheostomy Ischemic cardiomyopathy with systolic dysfunction (pre-op LVEF 20%, post-op 10% ) and post-op cardiogenic shock (renal & hepatic failure) - IABP removed 01/31 - CI > 2.2 - Continue Milrinone/dopamine for support ARF - Cr stable at 3.0/BUN climbing - Adequate UOP without electrolyte abnormalities - Further mgmt as per nephrology Postoperative paroxysmal atrial fibrillation - Continue amiodarone - CHADS-VASC 4 - consider therapeutic prophylaxis DVT prophylaxis - Heparin SQ/Continue SCDs Access - RIJ central line 01/27 - consider changing (?PICC) Subjective: Sedated. Objective: Vital Signs Temp Pulse Resp BP Pulse Ox 36.5 C 105 H 27 H 104/46 L 95 02/06/18 04:00 02/06/18 06:00 02/06/18 06:00 02/06/18 06:00 02/06/18 06:00 Laboratory Results 02/06/18 05:05 02/06/18 05:05 02/05/18 02/06/18 02/07/18 05:59 05:59 05:59 Intake Total 1516.3 2986.3 Output Total 1865 2280 150 Balance -348.7 706.3 -150 PT 18.3 SEC (12.0-15.0) H 02/04/18 10:50 INR 1.50 (0.83-1.16) H 02/04/18 10:50 Physical Exam - Physical Exam General Appearance: no apparent distress EENT: scleral icterus (R), scleral icterus (L), ET tube Neck: normal inspection Respiratory: No respiratory distress Cardiac/Chest: tachycardia Abdomen: non-tender, soft, No distended Skin: normal color, warm/dry Extremities: No pedal edema Neuro/Psych: other (sedated) ICD10 Worksheet Patient Problems: Problems Problem Status Onset Acute blood loss anemia Acute CAD (coronary artery disease) Acute Cardiomyopathy Acute S/P coronary artery bypass graft x 4 Acute
--- NOTE | 2018-02-06 09:37 | SOAPPROG ---
SOAP Progress Note Assessment/Plan: Assessment: 1. JEAN on CKD -Cr stable at 3.0, BUN continues to climb -Started on Lasix 02/05 with good response, although CVP lower today (6) and BP lower, dopa higher -Holding lasix today, will start hypotonic IVF as Na also rising, monitor for any signs of volume overload -Wean pressors as tolerated -Will hold off on CRRT for now, and follow labs. 2. AF / HFrEF -s/p multiple DCCT, now on milrinone, dopamine resumed 02/04 -On amio gtt -Has mild sinus tach now 3. Resp alkalosis - -Pt less tachypneic today, ABG improved -Cont to follow Plan: 02/06/18 09:33 02/06/18 09:37 Subjective: On higher dose of dopamine this morning. Objective: Vital Signs Temp Pulse Resp BP Pulse Ox 36.5 C 111 H 28 H 99/40 L 93 02/06/18 04:00 02/06/18 07:46 02/06/18 07:46 02/06/18 07:00 02/06/18 07:46 Laboratory Results 02/06/18 05:05 02/06/18 05:05 02/05/18 02/06/18 02/07/18 05:59 05:59 05:59 Intake Total 1516.3 2986.3 Output Total 1865 2280 300 Balance -348.7 706.3 -300 PT 18.3 SEC (12.0-15.0) H 02/04/18 10:50 INR 1.50 (0.83-1.16) H 02/04/18 10:50 Physical Exam - Physical Exam General Appearance: other (sedated) EENT: ET tube Respiratory: lungs clear Cardiac/Chest: tachycardia, other (incision well-approximated) Abdomen: soft Skin: warm/dry Extremities: No swelling ICD10 Worksheet Patient Problems: Problems Problem Status Onset Acute blood loss anemia Acute CAD (coronary artery disease) Acute Cardiomyopathy Acute S/P coronary artery bypass graft x 4 Acute
[2018-02-06] MEDS ORDERED: 1/2 NS 1,000 ML IV SCH (09:45)
[2018-02-06] MEDS: CHLORHEXIDINE GLUCONATE 15 ML UDL PO SCH ×2 (10:04→19:48)
[2018-02-06] MEDS: PANTOPRAZOLE SODIUM 40 MG VIAL IVP SCH (10:05)
[2018-02-06] MEDS: INSULIN GLARGINE 100 UNITS/ML UNIT SC SCH (10:05)
--- NOTE | 2018-02-06 11:25 | ASMTCMCOM ---
CM Note CM Note Notes: A "Family Mtg" has been set up for 12:00 Wednesday. Date Signed: 02/06/2018 11:25 AM Electronically Signed By:Diann Ramsey LCSW
[2018-02-06] MEDS ORDERED: POTASSIUM Cl (KCl) 50 ML IV ONE (12:27)
[2018-02-06] MEDS: MILRINONE/DEXTROSE 100 ML IV SCH ×3 (12:29→23:38)
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
--- NOTE | 2018-02-06 14:04 | SOAPPROG ---
[facility] Progress Note Assessment/Plan: Assessment: 1. Coronary disease status post bypass grafting 2. Ischemic cardiomyopathy ejection fraction 10-20%. 3. Acute renal failure creatinine stable at 3.0 4. Acute hepatic failure 5. Recurrent atrial fibrillation 6. Anemia postoperative 02/06/18 14:01 Impression: Creatinine has peaked at 3.0. Episode of AFib again last night associated with lightening of sedation. Poorly tolerated. Converted spontaneously with repeat bolus of IV amiodarone. I would expect his renal in function improves and we can initiate afterload reduction he should start to improve. Will repeat a limited echocardiogram tomorrow to assess LV recovery. Begin afterload reduction tomorrow with IV hydralazine and Isordil. 02/05/18 13:35 Impression: Slow and steady improvement with maintenance of sinus rhythm overnight. Persistent need for inotropes. Continue current medical therapy with clinical follow-up. Bolus amiodarone for recurrent AFib. Creatinine peaking but still rising at 3.0. Will consider addition of afterload reduction in the next several days. Likely with Isordil /hydralazine. EKG for tomorrow considerations for biventricular pacing to help overall LV function. Subjective: Events of last night reviewed. Patient's sedation was ligated with increase in tachycardia. Renewed atrial fibrillation requiring IV amiodarone. Creatinine has stable. Continues to make some urine. Objective: Laboratory Tests 02/06/18 02/06/18 05:05 05:05 WBC 20.08 H Creatinine 3.0 H Vital Signs Temp Pulse Resp BP Pulse Ox 37.2 C 106 H 24 H 107/47 L 92 02/06/18 12:00 02/06/18 12:00 02/06/18 12:00 02/06/18 12:00 02/06/18 12:00 Laboratory Results 02/06/18 05:05 02/06/18 11:45 02/05/18 02/06/18 02/07/18 05:59 05:59 05:59 Intake Total 1516.3 2986.3 Output Total 1865 2280 600 Balance -348.7 706.3 -600 PT 18.3 SEC (12.0-15.0) H 02/04/18 10:50 INR 1.50 (0.83-1.16) H 02/04/18 10:50 Medications Generic Name Dose Route Start Last Admin Trade Name Freq PRN Reason Stop Dose Admin Amiodarone HCl 200 mls @ 0 mls/hr 02/03/18 16:30 02/05/18 23:51 Amiodarone Hcl IV 08/02/18 16:29 200 mls AD GIANNA As Directed Milrinone Lactate/Dextrose 100 mls @ 0 mls/hr 02/03/18 11:00 02/06/18 12:29 Primacor 200 Mcg/Ml (Premix) IV 08/02/18 10:59 100 mls CONT [facility] Protocol Titrate Aspirin 81 mg 01/28/18 09:00 01/28/18 10:20 Aspirin PO 07/27/18 08:59 Not Given DAILY GIANNA Atorvastatin Calcium 40 mg 01/26/18 17:00 01/27/18 11:39 Lipitor PO 07/25/18 16:59 Not Given DAILY GIANNA Dopamine HCl/Dextrose 250 mls @ 0 mls/hr 02/03/18 19:30 02/06/18 13:15 Dopamine 1600 Mcg/Ml (Premix) IV 08/02/18 19:29 250 mls CONT [facility] Protocol Titrate Physical Exam - Physical Exam General Appearance: unresponsive EENT: ET tube Neck: supple Respiratory: rhonchi Cardiac/Chest: tachycardia Abdomen: non-tender, soft Skin: warm/dry ICD10 Worksheet Patient Problems: Problems Problem Status Onset Acute blood loss anemia Acute S/P coronary artery bypass graft x 4 Acute CAD (coronary artery disease) Acute Cardiomyopathy Acute
[2018-02-06] MEDS: AMIODARONE HCL 200 ML IV SCH ×2 (16:38→23:39)
[2018-02-06] MEDS ORDERED: VANCOMYCIN 1.25 GM in D5W 250 ML IV ONE (17:30)
[2018-02-06] MEDS: CEFEPIME HCL 1 GM in NS 50 ML IV SCH (17:40)
[2018-02-06] MEDS: PROPOFOL/EMULSION 100 ML IV SCH (22:07)
[2018-02-07] MEDS: INSULIN LISPRO 100 UNIT/ML SC SCH ×5 (00:15→17:16)
[2018-02-07] MEDS: fentaNYL/NACL 100 ML IV SCH (04:19)
[2018-02-07 04:33] LABS: PLATELET COUNT 165 10^3/uL (150-400)
[2018-02-07] MEDS: HEPARIN 5,000 UNIT/0.5 ML INJ SC SCH ×2 (05:47→17:17)
--- NOTE | 2018-02-07 07:38 | SOAPPROG ---
SOAP Progress Note Assessment/Plan: POD #10: CABGx4 (THORNTON-LAD, SVG-OM1, SVG-OM2, SVG-D2), EVH L thigh, right femoral IABP/swan Drips: Milrinone 0.375, Dopamine 10, Amiodarone 0.5, Propofol/Fentanyl CAD with prior [place] s/p CABGx4 - ASA/statin/BB for secondary prevention when appropriate Acute blood loss anemia with thrombocytopenia - HCT Stable s/p 3U PRBC - Platelets > 100 Acute hypoxic respiratory failure, ventilator dependent - FIO2 60% - Consider tracheostomy Ischemic cardiomyopathy with systolic dysfunction (pre-op LVEF 20%, post-op 10% ) and post-op cardiogenic shock (renal & hepatic failure) - IABP removed 01/31 - CI > 2.2 - Continue Milrinone/dopamine for support ARF - BUN/CR climbing, HCO3 lower - Adequate UOP without electrolyte abnormalities - Further mgmt as per nephrology Postoperative paroxysmal atrial fibrillation - Continue amiodarone - CHADS-VASC 4 - consider therapeutic prophylaxis DVT prophylaxis - Heparin SQ/Continue SCDs Access - RIJ central line 01/27 - consider changing (?PICC) Leukocytosis - Cultured and started on ABX has per section 8 property manager Subjective: Sedated. Objective: Vital Signs Temp Pulse Resp BP Pulse Ox 38.1 C 85 28 H 95/41 L 92 02/07/18 03:57 02/07/18 07:19 02/07/18 07:19 02/07/18 06:00 02/07/18 07:19 Microbiology 02/01/18 21:10 Blood Culture - Final Blood 02/01/18 21:30 Blood Culture - Final Blood Laboratory Results 02/07/18 04:05 02/07/18 04:05 02/06/18 02/07/18 02/08/18 05:59 05:59 05:59 Intake Total 2986.3 4540 Output Total 2280 2420 Balance 706.3 2120 PT 18.3 SEC (12.0-15.0) H 02/04/18 10:50 INR 1.50 (0.83-1.16) H 02/04/18 10:50 Physical Exam - Physical Exam General Appearance: no apparent distress EENT: ET tube Neck: normal inspection Respiratory: No respiratory distress Cardiac/Chest: regular rate, rhythm Abdomen: non-tender, soft, No distended Skin: normal color, warm/dry Extremities: pedal edema Neuro/Psych: other (sedated) ICD10 Worksheet Patient Problems: Problems Problem Status Onset Acute blood loss anemia Acute CAD (coronary artery disease) Acute Cardiomyopathy Acute S/P coronary artery bypass graft x 4 Acute
[2018-02-07] MEDS: PROPOFOL/EMULSION 100 ML IV SCH ×2 (08:06→15:43)
--- NOTE | 2018-02-07 08:24 | SOAPPROG ---
SOAP Progress Note Assessment/Plan: Assessment: 1. JEAN on CKD3 in setting of cardiogenic shock post op CABG -Cr stable at 3.2, BUN remains out of proportion -lytes ok, had 2.4 L UOP -continue gentle IVF back with 1/2 NS for now-- monitor -defer pressor management to CT surgery-- currently on dopamine, milrinone, and amiodarone gtts -Will hold off on CRRT for now but remains at risk-- continue to monitor closely 2. AF / HFrEF -CAD s/p CABG, post op shock -s/p multiple DCCT, now on milrinone, dopamine resumed 02/04 -On amio gtt 3. thrombocytopenia -plts improving 4. Acute hypoxic resp failure -FIO2 stable 60% 5. high phos- JEAN related -ensure on renal tube feeds Venita Lawrence MD [facility] pager [phone] 02/07/18 08:53 Subjective: Remains 60% FIO2. good uop- 2.4 L. On milrinone, amiodarone and dopamine. Objective: Vital Signs Temp Pulse Resp BP Pulse Ox 38.1 C 85 28 H 95/41 L 92 02/07/18 03:57 02/07/18 07:19 02/07/18 07:19 02/07/18 06:00 02/07/18 07:19 Microbiology 02/06/18 17:30 - Final Sputum, Induced/Suctioned 02/01/18 21:10 Blood Culture - Final Blood 02/01/18 21:30 Blood Culture - Final Blood Laboratory Results 02/07/18 04:05 02/07/18 04:05 02/06/18 02/07/18 02/08/18 05:59 05:59 05:59 Intake Total 2986.3 4540 Output Total 2280 2420 Balance 706.3 2120 PT 18.3 SEC (12.0-15.0) H 02/04/18 10:50 INR 1.50 (0.83-1.16) H 02/04/18 10:50 Physical Exam - Physical Exam General Appearance: other (intubated, sedated, on 60% FIO2) EENT: ET tube Neck: other (rij line c/d/i) Respiratory: other (coarse bs on vent bilat) Cardiac/Chest: regular rate, rhythm (incision c/d/i) Abdomen: normal bowel sounds, non-tender Male Genitalia: other (arriaza with dark urine) Extremities: other (trace edema, toes cool to touch) Neuro/Psych: other (sedated) ICD10 Worksheet Patient Problems: Problems Problem Status Onset Acute blood loss anemia Acute CAD (coronary artery disease) Acute Cardiomyopathy Acute S/P coronary artery bypass graft x 4 Acute
[2018-02-07] MEDS: PANTOPRAZOLE SODIUM 40 MG VIAL IVP SCH (08:29)
[2018-02-07] MEDS: CEFEPIME HCL 1 GM in NS 50 ML IV SCH (08:29)
[2018-02-07] MEDS: INSULIN GLARGINE 100 UNITS/ML UNIT SC SCH (08:29)
[2018-02-07] MEDS: CHLORHEXIDINE GLUCONATE 15 ML UDL PO SCH (08:30)
[2018-02-07] MEDS ORDERED: ALTEPLASE 2 MG VIAL IVP PRN (10:17)
[2018-02-07] MEDS ORDERED: AMIODARONE HCL 150 MG/100 ML BAG (1.5 MG/ML) IV ONE (12:24)
[2018-02-07] MEDS ORDERED: AMIODARONE HCL 100 ML IV ONE (12:25)
[2018-02-07] MEDS ORDERED: NOREPINEPHRINE BITARTRATE 16 MG in NS 250 ML IV SCH (13:00)
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
[2018-02-07 13:20] VITALS: BP 93/40
[2018-02-07] MEDS: MILRINONE/DEXTROSE 100 ML IV SCH (13:25)
--- NOTE | 2018-02-07 13:41 | SOAPPROG ---
SOAP Progress Note Assessment/Plan: Assessment: was asked by Stan Álvarez, PAC for CT surgery to evaluate for tracheostomy placement given persistent ventilatory requirements. - per chart review, FiO2 has been anywhere from 40, now 70, but oxygenating much better than previous - had repeat episode of A-fib today, hypotension and persistent pressor requirement - Discussed the case with Gregg Woodruff, will defer trach for now. Likely plan for bedside trach later this week pending tenuous cardiac status. Plan: 02/07/18 13:36 02/07/18 13:37 02/07/18 13:41 Objective: Vital Signs Temp Pulse Resp BP Pulse Ox 37.2 C 76 22 H 93/40 L 94 02/07/18 13:00 02/07/18 13:00 02/07/18 13:00 02/07/18 13:00 02/07/18 13:00 Microbiology 02/06/18 17:30 - Final Sputum, Induced/Suctioned 02/01/18 21:10 Blood Culture - Final Blood 02/01/18 21:30 Blood Culture - Final Blood Laboratory Results 02/07/18 04:05 02/07/18 04:05 02/06/18 02/07/18 02/08/18 05:59 05:59 05:59 Intake Total 2986.3 4540 Output Total 2280 2420 230 Balance 706.3 2120 -230 PT 18.3 SEC (12.0-15.0) H 02/04/18 10:50 INR 1.50 (0.83-1.16) H 02/04/18 10:50 ICD10 Worksheet Patient Problems: Problems Problem Status Onset Acute blood loss anemia Acute CAD (coronary artery disease) Acute Cardiomyopathy Acute S/P coronary artery bypass graft x 4 Acute
[2018-02-07] MEDS ORDERED: fentaNYL 100 MCG/2 ML INJ ONE (14:00)
[2018-02-07] MEDS ORDERED: LIDOCAINE 1% 300 MG/30 ML SDV ONE (14:00)
[2018-02-07] MEDS ORDERED: IOPAMIDOL (ISOVUE-370) 150 ML BTL IV ONE (14:01)
[2018-02-07] MEDS ORDERED: MIDAZOLAM 2 MG/2 ML VIAL ONE ×2 (14:01)
--- NOTE | 2018-02-07 14:02 | SOAPPROG ---
SOAP Progress Note Assessment/Plan: Assessment: 1. Coronary disease status post bypass grafting 2. Ischemic cardiomyopathy ejection fraction 10-20%. 3. Acute renal failure creatinine stable at 3.0 4. Acute hepatic failure 5. Recurrent atrial fibrillation 6. Anemia postoperative 7. Moderate to severe mitral regurgitation Procedure today echocardiogram limited showing severe LV dysfunction with moderate to severe mitral regurgitation. 02/07/18 13:59 Impression: Clear turned for the worse this morning with recurrent atrial fibrillation. Echocardiogram shows severely dilated left ventricle with an akinetic anterior septal segment ejection fraction at best 10% associated with at least moderate to severe mitral regurgitation. Recent episode also required addition of Levophed for maintenance of blood pressure. In light of recent events, poor LV recovery, recommendations are for right heart catheterization today with potential insertion intra balloon pump/Impella and transferred to [facility] for consideration for left ventricular assist device placement. Other option would be to perform right heart catheterization balloon pump considerations for biventricular pacing in the setting of left bundle branch block and severe LV dysfunction. Have discussed this with the patient's family in will proceed with transfer the [facility]. My partner Dr. Bailey and Dr. Aleman are in agreement. Dr. Bailey has made arrangements with [place]. 02/06/18 14:01 Impression: Creatinine has peaked at 3.0. Episode of AFib again last night associated with lightening of sedation. Poorly tolerated. Converted spontaneously with repeat bolus of IV amiodarone. I would expect his renal in function improves and we can initiate afterload reduction he should start to improve. Will repeat a limited echocardiogram tomorrow to assess LV recovery. Begin afterload reduction tomorrow with IV hydralazine and Isordil. 02/05/18 13:35 Impression: Slow and steady improvement with maintenance of sinus rhythm overnight. Persistent need for inotropes. Continue current medical therapy with clinical follow-up. Bolus amiodarone for recurrent AFib. Creatinine peaking but still rising at 3.0. Will consider addition of afterload reduction in the next several days. Likely with Isordil /hydralazine. EKG for tomorrow considerations for biventricular pacing to help overall LV function. Subjective: Events of last 24 hr reviewed. Recurrent dysrhythmia this morning associated with recurrent hypotension. Amiodarone bolus patient transition to a junctional rhythm. He now requiring Levophed for maintenance of a systolic blood pressure of 90. Objective: Medications Generic Name Dose Route Start Last Admin Trade Name Margoth PRN Reason Stop Dose Admin Milrinone Lactate/Dextrose 100 mls @ 0 mls/hr 02/03/18 11:00 02/07/18 13:25 Primacor 200 Mcg/Ml (Premix) IV 08/02/18 10:59 100 mls CONT GIANNA Protocol Titrate Norepinephrine 16 mg/ Sodium 266 mls @ 0 mls/hr 02/07/18 13:00 02/07/18 12:56 Chloride IV 08/06/18 12:59 266 mls CONT GIANNA Protocol Per Protocol Amiodarone HCl 200 mls @ 0 mls/hr 02/03/18 16:30 02/06/18 23:39 Amiodarone Hcl IV 08/02/18 16:29 200 mls AD GIANNA As Directed Aspirin 81 mg 01/28/18 09:00 01/28/18 10:20 Aspirin PO 07/27/18 08:59 Not Given DAILY GIANNA Atorvastatin Calcium 40 mg 01/26/18 17:00 01/27/18 11:39 Lipitor PO 07/25/18 16:59 Not Given DAILY GIANNA Propofol 100 mls @ 0 mls/hr 01/27/18 17:03 02/07/18 08:06 Diprivan 10 Mg/Ml (Premix) IV 07/26/18 17:02 100 mls CONT GIANNA Protocol Per Protocol Vital Signs Temp Pulse Resp BP Pulse Ox 37.2 C 76 22 H 93/40 L 94 02/07/18 13:00 02/07/18 13:00 02/07/18 13:00 02/07/18 13:00 02/07/18 13:00 Microbiology 02/06/18 17:30 - Final Sputum, Induced/Suctioned 02/01/18 21:10 Blood Culture - Final Blood 02/01/18 21:30 Blood Culture - Final Blood Laboratory Results 02/07/18 04:05 02/07/18 04:05 02/06/18 02/07/18 02/08/18 05:59 05:59 05:59 Intake Total 2986.3 4540 Output Total 2280 2420 230 Balance 706.3 2120 -230 PT 18.3 SEC (12.0-15.0) H 02/04/18 10:50 INR 1.50 (0.83-1.16) H 02/04/18 10:50 Physical Exam - Physical Exam General Appearance: unresponsive Respiratory: rhonchi Cardiac/Chest: bradycardia, No JVD Peripheral Pulses: 1+: femoral (R), femoral (L) Abdomen: normal bowel sounds, soft Skin: warm/dry, No rash Neuro/Psych: oriented x 3 ICD10 Worksheet Patient Problems: Problems Problem Status Onset Acute blood loss anemia Acute S/P coronary artery bypass graft x 4 Acute CAD (coronary artery disease) Acute Cardiomyopathy Acute
--- NOTE | 2018-02-07 15:15 | PDCTREPORT ---
Cardiothoracic Procedure Rpt Cardiothoracic Procedure Report: Procedure: 1. Left heart catheterization with measurement of left ventricular end-diastolic pressure. 2. Insertion intra balloon pump. 3. Right heart catheterization Indications: Cardiogenic shock Day 11post coronary artery bypass grafting, moderate to severe mitral regurgitation. After obtaining informed consent from the patient's family he was brought to the cardiac catheterization lab. The right groin was sterilely prepped and draped and infiltrated 2% xylocaine a 8 Romanian sheath was inserted in the right femoral vein. 6 Romanian sheath was inserted in the right femoral artery. Using a 6 Romanian pigtail catheter the aortic valve was crossed left ventricular pressure measurement was performed. This revealed an end-diastolic pressure of 25 mm of mercury. The sheath was exchanged for an intra balloon pump sheath. The intra balloon pump was placed under fluoroscopy and advanced to the aortic knob. Fluoroscopy showed the device to be working well. Right heart catheterization was performed with a ICU [place] catheter. Sheaths were secured. Patient be taken to the ICU for continued care. Findings: Left ventricular end-diastolic pressure was 25 mm of mercury. Right atrial pressure 15 mm of mercury Right ventricular pressure 45 mm of mercury. Pulmonary artery pressure 40/22 mm of mercury. Wedge pressure 20 mm of mercury. Mixed venous oxygen saturation 62%. Cardiac output by thermodilution was 5.8 liters/minute. Conclusion successful insertion intra balloon pump Patient appears to be euvolemic. He will be taken to the ICU for continued care. Will plan to wean off inotropes. Maintenance of sinus rhythm critical. Considerations for biventricular pacing. Patient Problems: Problems Problem Status Onset Acute blood loss anemia Acute S/P coronary artery bypass graft x 4 Acute CAD (coronary artery disease) Acute Cardiomyopathy Acute
[2018-02-07] MEDS ORDERED: MIDAZOLAM HCL 50 MG in D5W 50 ML IV SCH (15:30)
--- NOTE | 2018-02-07 15:46 | ASMTLACE ---
LACE Length of stay for Answers: 7-13 days current admission Acuity / Level of Answers: Yes Care: Did the patient have an inpatient admission? Comorbidities - select Answers: Congestive heart failure all that apply Coronary Artery Disease Diabetes (uncontrolled or controlled) Other Notes: HTN # of Emergency department Answers: 1-2 visits in the last 6 months Score: 15 Date Signed: 02/07/2018 03:45 PM Electronically Signed By:Diann Ramsey LCSW
--- NOTE | 2018-02-07 15:49 | ASMTDCNOTE ---
Case Management Discharge Discharge Order Complete? Answers: Yes Patient to Obtain Answers: Other Notes: [facility] Medications Transportation Arranged Answers: Other Notes: [facility] helicopter Transport will Pick (Date 02/07/2018 04:00 PM & Time) EMTALA Complete Answers: Yes Case Management Transport Answers: No Notes: [place] to provide Form Complete transport Faxed Final Orders Answers: No Notes: Records to go with patient Family Notified Answers: Yes Notes: Family present Discharge Comments Notes: Patient to transfer to for specialized heart care. Date Signed: 02/07/2018 03:49 PM Electronically Signed By:Diann Ramsey LCSW
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
--- NOTE | 2018-02-07 16:22 | PDDCSUM ---
Discharge Summary Discharge Summary: Transfer note: Admission date 01/25/2018. Transfer date 02/08/2018. Admission diagnosis coronary disease with anterior ischemia Discharge diagnoses 1. Cardiogenic shock post coronary artery bypass grafting with moderate to severe mitral regurgitation. 2.acute renal failure felt to be ATN. 3. Paroxysmal atrial fibrillation on amiodarone. 4. Acute hepatic injury. 5. Postoperative anemia. 6. Respiratory failure. Procedures: 01/25/2018 left heart catheterization coronary ventricular angiography. 01/27/2018 coronary artery bypass grafting x4 with mammary artery to the LAD. 01/27/2018 insertion intra balloon pump right heart catheterization . 02/03/2018 cardioversion x2. Consultation: Renal service, critical Care, Cardiology, Cardiothoracic surgery. Discharge medications please see attached computer sheet. Hospital course: Mr. Goldsmith is a vigorous 62-year-old male admitted to the hospital electively on the 25 of January for symptoms of mild shortness of breath and an abnormal nuclear stress test suggesting significant anterior ischemia. This was done in the setting of new onset left bundle branch block. Cardiac catheterization reveals severe multivessel coronary disease with reduced LV systolic function. Ejection fraction at that time was noted to be 20 %. He underwent high risk revascularization on the . This was complicated by severely calcific and atretic vessels. Mammary artery to the LAD was felt to be poor though revascularizations did show revitalization of the LAD territory. The patient was extubated prior to returning to the ICU. However later that day he decompensated. He was emergently reintubated. He was brought back to the cardiac catheterization lab where intra-aortic balloon pump was placed with right heart catheterization revealing a wedge pressure of 35 mm of mercury. The patient had significant hepatic injury at that time associated with acute renal injury felt to be ATN. His creatinine peaked at 3.2. He was non oliguric. The renal service was consulted. He did not require dialysis. Patient's rhythm became unstable with recurrent atrial fibrillation with a rapid ventricular response leading to significant hypotension. This required emergent cardioversion x2 and aggressive inotropic support. Today the patient again had an episode of atrial fibrillation associated with hypotension. Stat echocardiogram done to assess LV recovery showed ejection fraction at best 20% with an anterior apical thin segment and at least moderate to severe mitral regurgitation. Amiodarone was able to convert him back to a junctional rhythm and ultimately sinus rhythm. He was brought back to the cardiac catheterization lab where a intra balloon pump was replaced. Right heart catheterization revealed him to be euvolemic with a mixed venous oxygen saturation of 62%. In light of persistent severe LV dysfunction, need for intra -aortic balloon pump it is elected to transfer him to [facility] for consideration for left ventricular assist device. He was considered for biventricular pacing which I think should be evaluated further as he improves. The patient's family was notified and part of the decision making. At the time of this dictation blood pressure was 110 systolic with intra balloon pump on IV pressor support. He remains intubated. He is in sinus rhythm. He will be transferred with records. Questions were answered.
--- NOTE | 2018-02-07 16:42 | ECHO ---
[email or web address] [address] [address] Main: [phone] Fax: Transthoracic Echocardiogram Name: ANGE MACKAY MR#: [id number] Study Date: 02/07/2018 Study Time: 07:41 AM Date of : 1955 Age: 62 year(s) Height: 172.7 cm (68 in.) Weight: 81.65 kg (180 lb.) BSA: 1.95 m2 Gender: Male Examination: Limited Echo Indication: LV recovery assessment, CABG x 6 Image Quality: Contrast: Requested by: Aryan Dewey BP: 100 mmHg/43 mmHg Heart Rate: Rhythm: Indication: LV recovery assessment, CABG x 6 Procedure Staff Manager School: [employer] Hsu RDCS Reading Physician: Joaquín Bailey MD Requesting Provider: Conclusions: Moderately dilated left ventricle. The ejection fraction is estimated to be 15 %. The basal inferoseptal, basal inferior, mid inferoseptal, mid inferior, mid inferolateral and apical inferior wall segments are hypokinetic. The basal anterior, basal anteroseptal, basal anterolateral, mid anterior, mid anteroseptal, mid anterolateral, apical anterior, apical septal, apical lateral and apex wall segments are akinetic. All remaining scored wall segments are normal. Moderate to severe mitral regurgitation. Mild to moderate tricuspid valve regurgitation. RVSP is 40mmHG.. Unchanged when compared to prior echocardiographic studies. Measurements: Chambers Valvular Assessment AV/MV Valvular Assessment TV/PV Normal Normal Normal Name Value Range Name Value Range Name Value Range EF Range: 15 % TR Vmax: 2.95 mm/s ( - ) TR PGmax: 35 mmHg ( - ) syst. PAP: 40 mmHg ( - ) Continued Measurements: Valvular Assessment TV/PV Name Value CVP (est.): 5 mmHg Findings: Left Ventricle: Moderately dilated left ventricle. The ejection fraction is estimated to be 15 %. The basal Patient: ANGE MACKAY Study Date: 02/07/2018 Page 1 of 2 07:41 AM inferoseptal, basal inferior, mid inferoseptal, mid inferior, mid inferolateral and apical inferior wall segments are hypokinetic. The basal anterior, basal anteroseptal, basal anterolateral, mid anterior, mid anteroseptal, mid anterolateral, apical anterior, apical septal, apical lateral and apex wall segments are akinetic. All remaining scored wall segments are normal. Mitral Valve: Moderate to severe mitral regurgitation. Tricuspid Valve: Mild to moderate tricuspid valve regurgitation. RVSP is 40mmHG.. (No Signature Object) Wall Motion Scores Patient: ANGE MACKAY Study Date: 02/07/2018 Page 2 of 2 07:41 AM [id number]
--- NOTE | 2018-02-07 16:56 | ASMTCMCOM ---
CM Note CM Note Notes: "Family Meeting" today with Clifford-brother from [place], Teja from [place], Mother Shantelle from [place], and friends Mohan and Cecilia Jazz. 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 Cloth Mercerizing Supervisor decided patient needed to go to for a VATS procedure. Date Signed: 02/07/2018 04:56 PM Electronically Signed By:Diann Ramsey LCSW
[2018-02-07] MEDS: AMIODARONE HCL 200 ML IV SCH (17:07)
--- NOTE | 2018-02-07 17:19 | CPEKG ---
Test Reason : OPEN Blood Pressure : / mmHG Vent. Rate : 077 BPM Atrial Rate : 000 BPM P-R Int : 204 ms QRS Dur : 133 ms QT Int : 489 ms P-R-T Axes : 000 024 151 degrees QTc Int : 554 ms Accelerated junctional rhythm Left bundle branch block Confirmed by Brianna Feliz ([id number]) on 02/07/2018 5:18:41 PM Referred By: Confirmed By:Brianna Feliz
[2018-02-23] MEDS ORDERED: Aflibercept [Eylea] 2 MG IO SCH (09:00)
== END 2018-02-07 17:45 | disposition short-term general hospital (02) | DRG 233 ==
LOC: FCATH 09:20 → F2W 12:12 → F2N 01-27 08:52
PROVIDERS: ADMIT Internal Medicine Cardiovascular Disease; ATTEND Internal Medicine Interventional Cardiology
PROC: 4A023N7 Measurement of Cardiac Sampling and Pressure, Left Heart, Percutaneous Approach (ICD-10-PCS; 2018-01-25)
PROC: B2151ZZ Fluoroscopy of Left Heart using Low Osmolar Contrast (ICD-10-PCS; 2018-01-25)
PROC: B2111ZZ Fluoroscopy of Multiple Coronary Arteries using Low Osmolar Contrast (ICD-10-PCS; 2018-01-25)
PROC: 0BH17EZ Insertion of Endotracheal Airway into Trachea, Via Natural or Artificial Opening (ICD-10-PCS; 2018-01-27)
PROC: 4A023N6 Measurement of Cardiac Sampling and Pressure, Right Heart, Percutaneous Approach (ICD-10-PCS; 2018-01-27)
PROC: 5A02210 Assistance with Cardiac Output using Balloon Pump, Continuous (ICD-10-PCS; 2018-01-27)
PROC: 5A1955Z Respiratory Ventilation, Greater than 96 Consecutive Hours (ICD-10-PCS; 2018-01-27)
PROC: 30233N1 Transfusion of Nonautologous Red Blood Cells into Peripheral Vein, Percutaneous Approach (ICD-10-PCS; 2018-01-27)
PROC: 0T9B70Z Drainage of Bladder with Drainage Device, Via Natural or Artificial Opening (ICD-10-PCS; 2018-01-27)
PROC: 06BQ4ZZ Excision of Left Saphenous Vein, Percutaneous Endoscopic Approach (ICD-10-PCS; principal; 2018-01-27 07:15)
PROC: 02100Z9 Bypass Coronary Artery, One Artery from Left Internal Mammary, Open Approach (ICD-10-PCS; principal; 2018-01-27 07:15)
PROC: 5A1221Z Performance of Cardiac Output, Continuous (ICD-10-PCS; principal; 2018-01-27 07:15)
PROC: 02L70ZK Occlusion of Left Atrial Appendage, Open Approach (ICD-10-PCS; principal; 2018-01-27 07:15)
PROC: 021209W Bypass Coronary Artery, Three Arteries from Aorta with Autologous Venous Tissue, Open Approach (ICD-10-PCS; principal; 2018-01-27 07:15)
PROC: 02HV33Z Insertion of Infusion Device into Superior Vena Cava, Percutaneous Approach (ICD-10-PCS; 2018-01-27 07:15)
PROC: 5A2204Z Restoration of Cardiac Rhythm, Single (ICD-10-PCS; 2018-02-03)
PROC: 30233N1 Transfusion of Nonautologous Red Blood Cells into Peripheral Vein, Percutaneous Approach (ICD-10-PCS; 2018-02-03)
PROC: 5A2204Z Restoration of Cardiac Rhythm, Single (ICD-10-PCS; 2018-02-04)
PROC: 5A02210 Assistance with Cardiac Output using Balloon Pump, Continuous (ICD-10-PCS; 2018-02-07)
PROC: B2111ZZ Fluoroscopy of Multiple Coronary Arteries using Low Osmolar Contrast (ICD-10-PCS; 2018-02-07)
PROC: B2151ZZ Fluoroscopy of Left Heart using Low Osmolar Contrast (ICD-10-PCS; 2018-02-07)
PROC: 4A023N8 Measurement of Cardiac Sampling and Pressure, Bilateral, Percutaneous Approach (ICD-10-PCS; 2018-02-07)
DX: I25.10 Atherosclerotic heart disease of native coronary artery without angina pectoris (principal); T81.11XA Postprocedural cardiogenic shock, initial encounter; I25.5 Ischemic cardiomyopathy; D62 Acute posthemorrhagic anemia; N17.0 Acute kidney failure with tubular necrosis; K72.00 Acute and subacute hepatic failure without coma; I97.89 Other postprocedural complications and disorders of the circulatory system, not elsewhere classified; I48.0 Paroxysmal atrial fibrillation; I48.92 Unspecified atrial flutter; J96.01 Acute respiratory failure with hypoxia; I50.22 Chronic systolic (congestive) heart failure; E87.3 Alkalosis; I95.89 Other hypotension; D72.829 Elevated white blood cell count, unspecified; N18.9 Chronic kidney disease, unspecified; I34.0 Nonrheumatic mitral (valve) insufficiency; I25.82 Chronic total occlusion of coronary artery; D69.59 Other secondary thrombocytopenia; E11.21 Type 2 diabetes mellitus with diabetic nephropathy; I11.0 Hypertensive heart disease with heart failure; I44.7 Left bundle-branch block, unspecified; M51.16 Intervertebral disc disorders with radiculopathy, lumbar region; E11.319 Type 2 diabetes mellitus with unspecified diabetic retinopathy without macular edema; E11.40 Type 2 diabetes mellitus with diabetic neuropathy, unspecified; E78.5 Hyperlipidemia, unspecified; E21.0 Primary hyperparathyroidism; I73.00 Raynaud's syndrome without gangrene; I25.2 Old myocardial infarction; Z79.82 Long term (current) use of aspirin; Z82.49 Family history of ischemic heart disease and other diseases of the circulatory system
CPT/HCPCS: 82435-PO; 82565-PO; 82947-PO; 83605-PO; 84132-PO; 84295-PO; 84520-PO; 85014-PO; 86022-90; 97162-GP; C1760; C1768; J0153; J0171; J0282; J0690; J0692; J1100; J1160; J1250; J1265; J1644; J1815; J1940; J2001; J2150; J2250; J2260; J2270; J2370; J2440; J2704; J2720; J2765; J2930; J3010; J3370; J3475; J3480; P9016; P9041; P9047; Q9967